=== PATIENT | female | born 1975 | race Caucasian/White ===

== ENCOUNTER → 2016-12-08 | Outpatient (CLI) | payer MEDICAID ==
[2016-12-08 11:34] LABS: LIPASE 74.7 U/L (23-300)
[2016-12-08 11:40] LABS: AMYLASE < 30 U/L (30-110)
== END ==
LOC: OD 09:24
PROVIDERS: ATTEND Specialist
DX: R10.9 Unspecified abdominal pain (principal); C25.0 Malignant neoplasm of head of pancreas; D50.9 Iron deficiency anemia, unspecified
CPT/HCPCS: 36415; 82150; 83690; 86301; 86304

== ENCOUNTER 2016-12-10 08:03 | Day surgery (SDC) | payer MEDICAID ==
[2016-12-08 11:07] LABS: ABSOLUTE EOSINOPHILS # (AUTO) 0.5 10^3/uL (0.0-0.6); ABSOLUTE LYMPHOCYTES (AUTO) 2.9 10^3/uL (0.5-4.7); ABSOLUTE MONOCYTES (AUTO) 0.6 10^3/uL (0.1-1.4); ABSOLUTE NEUT (AUTO) 7.2 10^3/uL (1.7-8.2); BASOPHILS % (AUTO) 0.2 % (0-2); EOSINOPHILS % (AUTO) 4.5 % (0-6); HEMATOCRIT 36.4 % (36.0-47.0); HEMOGLOBIN 11.7 g/dL (12.0-15.5); HGB HCT DIFFERENCE -1.3; LYMPHOCYTES % (AUTO) 25.8 % (13-45); MEAN CORPUSCULAR HEMOGLOBIN 26.6 pg (27.0-33.4); MEAN CORPUSCULAR HGB CONC 32.2 g/dL (32.0-36.0); MEAN CORPUSCULAR VOLUME 83 fl (80-97); MONOCYTES % (AUTO) 5.4 % (3-13); RED CELL DISTRIBUTION WIDTH 15.1 % (11.5-14.0); SEGMENTED NEUTROPHILS % (AUTO) 64.1 % (42-78); WHITE BLOOD COUNT 11.2 10^3/uL (4.0-10.5)
--- NOTE | 2016-12-09 15:28 | HISTORY AND PHYSICAL E ---
History and Physical NAME: BERTA MARIE : 1975 AGE: 41Y ADMITTED: 12/10/2016 ROOM: CHIEF COMPLAINT: Patient presented at this time regarding colonoscopy. HISTORY OF PRESENT ILLNESS: Patient did have history of hemorrhoids, cholecystectomy, partial hysterectomy. Her primary is Ogilvie Xoinka. The patient does have history of H pylori, abdominal pain, diarrhea, reflux, nausea. PAST SURGICAL HISTORY: 1. Colonoscopy 10 years ago. 2. Cholecystectomy. SOCIAL HISTORY: , does not smoke, does not drink. FAMILY HISTORY: Father is alive, heart disease. Mom is alive, heart disease. REVIEWING OF SYSTEMS: ENDOCRINE: Diabetes. CARDIAC: Hypertension. RESPIRATORY: Asthma, she takes inhaler. NEUROPSYCHIATRIC: Bipolar. PHYSICAL EXAMINATION: GENERAL: She is 41. VITAL SIGNS: Blood pressure 110/70. Pulse 80. Respirations 18. Temperature is 98. HEAD, EYES, EARS, NOSE, THROAT: Normal. NECK: Supple. LUNGS: Clear. ABDOMEN: Soft. NEUROLOGIC: Negative. CONCLUSION: 1. Abdominal pain. 2. Hemorrhoids. 3. History of H pylori. 4. Gastritis. PLAN: Colonoscopy, colon exam. DICTATING PHYSICIAN: TAMARA CARCAMO M.D. [id number] PHY#: [id number] ID: [id number] JOB#: [id number] ACCT: [id number] cc:TAMARA CARCAMO M.D. >
--- NOTE | 2016-12-09 15:36 | HISTORY AND PHYSICAL E ---
History and Physical NAME: BERTA MARIE : 1975 AGE: 41Y ADMITTED: 12/10/2016 ROOM: HISTORY: The patient presented at this time regarding colon exam. 2015 abdominal pain, bloating. She cannot tolerate procedure. She needs to be done with propofol in the OR. She is allergic to SULFA, ABILIFY, DEPAKOTE and LITHIUM. The patient had underwent recent endoscopy. Her upper scope done in the OR on ____ 2015 where she did have history of H. pylori gastritis, benign gastritis. The biopsy came back no bacteria. No cancer. White count 9 and hemoglobin 12. Amylase and lipase normal. Potassium is 4.2. Urine is clear. The patient's serology for IBD is negative. She does have group B beta strep. The patient referred to us by [facility]. She does have abdominal pain, diarrhea, bloating, reflux, nausea. She is . She did have colonoscopy Dr. Long 10 years ago showing hemorrhoids. Upper scope 2005. She did have cholecystectomy. She had hysterectomy. REVIEW OF SYSTEMS: CARDIAC: Hypertension. ENDOCRINE: Diabetes. History of kidney stones. GASTROINTESTINAL: Diarrhea, abdominal pain, bloating. ONCOLOGY/HEMATOLOGY: Negative. NEUROPSYCH: Bipolar, depression, vertigo. MUSCULOSKELETAL: Arthritis. FAMILY HISTORY: Father is alive, heart disease. Mom is alive, heart disease. EXAM: GENERAL: Pleasant. VITAL SIGNS: Blood pressure is 110/70, pulse 80, respirations 18, temperature 98. Weight is 300. HEAD, EYES, EARS, NOSE AND THROAT: Normal. ABDOMEN: Soft. NEUROLOGIC: Exam. MEDICATIONS: 1. Gabapentin. 2. Zofran. 3. Lisinopril. 4. Metformin. 5. Adderall. 6. Omeprazole. 7. Sucralfate. 8. Promethazine. 9. Trazodone. 10. Meclizine. 11. Meloxicam. 12. ProAir. IMAGING: The patient did have abdominal CT shows incomplete image. No significant abnormalities. CT scan small bowel series negative. The patient did have an upper scope in the OR. REFERRING PHYSICIAN: She is referred to us by [place]. At this time the patient presented regarding colonoscopy to be done in the OR. She does have asthma, reflux and kidney stones. She has abdominal pain left upper quadrant, left lower quadrant, right upper and right lower. She does have diarrhea, abdominal pain and arthralgia. CONCLUSION: Abdominal pain. PLAN: Colonoscopy scheduled in the OR to be done tomorrow on 12/10/2016. DICTATING PHYSICIAN: TAMARA CARCAMO M.D. [id number] PHY#: [id number] ID: [id number] JOB#: [id number] ACCT: [id number] cc:TAMARA CARCAMO M.D. >
[~2016-12-10 08:03] MED LIST: GLUCAGON,HUMAN RECOMB 1 MG INJ ONE; LACTATED RINGERS 1000 ML IV PRN; LIDOCAINE 0.5% INJ-PF (5 MG/ML) 50 ML SDV SUBCUT PRN; LIDOCAINE 2% JELLY 30 ML TUBE ONE
[2016-12-10] MEDS ORDERED: ALBUTEROL SULFATE 0.083% NEB 2.5 MG/3 ML AMPUL NEB PRN (08:42)
[2016-12-10] MEDS ORDERED: FAMOTIDINE INJ/PF 20 MG/2 ML SDV IV PRN (08:42)
[2016-12-10] MEDS ORDERED: PROPOFOL INJ 200 MG/20 ML VIAL IV ONE (09:09)
[2016-12-10] MEDS ORDERED: METOCLOPRAMIDE HCL INJ/PF 10 MG/2 ML SDV ONE (09:44)
[2016-12-10] MEDS ORDERED: ONDANSETRON HCL INJ/PF 4 MG/2 ML SDV ONE (09:44)
[2016-12-10] MEDS ORDERED: FAMOTIDINE INJ/PF 20 MG/2 ML SDV IV ONE (09:45)
[2016-12-10] MEDS ORDERED: ONDANSETRON HCL INJ/PF 4 MG/2 ML SDV IV PRN (10:47)
[2016-12-10] MEDS ORDERED: FENTANYL CITRATE INJ/PF 100 MCG/2 ML AMPUL IV PRN ×3 (10:47)
[2016-12-10 12:24] LABS: ABSOLUTE EOSINOPHILS # (AUTO) 0.3 10^3/uL (0.0-0.6); ABSOLUTE LYMPHOCYTES (AUTO) 2.4 10^3/uL (0.5-4.7); ABSOLUTE MONOCYTES (AUTO) 0.7 10^3/uL (0.1-1.4); ABSOLUTE NEUT (AUTO) 13.7 10^3/uL (1.7-8.2); BASOPHILS % (AUTO) 0.2 % (0-2); EOSINOPHILS % (AUTO) 1.5 % (0-6); HEMATOCRIT 34.9 % (36.0-47.0); HEMOGLOBIN 11.6 g/dL (12.0-15.5); HGB HCT DIFFERENCE -0.1; LYMPHOCYTES % (AUTO) 13.9 % (13-45); MEAN CORPUSCULAR HEMOGLOBIN 27.1 pg (27.0-33.4); MEAN CORPUSCULAR HGB CONC 33.1 g/dL (32.0-36.0); MEAN CORPUSCULAR VOLUME 82 fl (80-97); RED BLOOD COUNT 4.26 10^6/uL (3.72-5.28); SEGMENTED NEUTROPHILS % (AUTO) 80.4 % (42-78); WHITE BLOOD COUNT 17.1 10^3/uL (4.0-10.5)
--- NOTE | 2016-12-10 12:52 | DISCHARGE SUMMARY E ---
Discharge Summary NAME: BERTA MARIE : 1975 AGE: 41Y ADMITTED: 12/10/2016 DISCHARGED: 12/10/2016 PROCEDURE: Colonoscopy. HISTORY: A 41-year-old female with rectal bleeding and abdominal pain and remote history of lipoma underwent colonoscopy today. There was no lipoma, no polyps, external hemorrhoids. The patient does have diabetes, hypertension, depression and arthritis. ALLERGIES: SULFA. DISCHARGE PLAN: 1. Assurance. 2. Baseline lab studies. 3. We will recheck the H. pylori serology and serology for inflammatory bowel disease and CRP to rule out Crohn disease. 4. Consideration of follow-up colonoscopy after 10 years. FINAL DIAGNOSES: 1. External hemorrhoids. 2. Diarrhea, etiology undetermined. 3. History of partial hysterectomy and cholecystectomy. DICTATING PHYSICIAN: TAMARA CARCAMO M.D. [id number] [id number] PHY#: [id number] ID: [id number] JOB#: [id number] ACCT: [id number] cc:TAMARA CARCAMO M.D. >
--- NOTE | 2016-12-10 12:52 | OPERATIVE REPORT E ---
Operative Report NAME: BERTA MARIE : 1975 AGE: 41Y DATE OF SURGERY: 12/10/2016 ROOM: PREOPERATIVE DIAGNOSES: 1. Rectal bleeding. 2. Abdominal pain. 3. Remote history of lipoma. 4. Hemorrhoids. POSTOPERATIVE DIAGNOSIS: External hemorrhoids. PROCEDURE: Colonoscopy. SURGEON: TAMARA CARCAMO M.D. TISSUE REMOVED OR ALTERED: None. ANESTHESIA: Done in the OR with Anesthesia standby. DESCRIPTION OF PROCEDURE: Rectal exam shows external hemorrhoids. Sigmoid, descending colon normal. Transverse colon normal. Ascending colon normal. Cecum. The was a moderate amount of stool in the ascending colon. Cecum and ascending colon normal. Sigmoid and descending normal all the way to the rectum. CONCLUSION: 1. Diarrhea, etiology undetermined. Most likely secondary to metformin. 2. No evidence of polyps. 3. No evidence of malignancy. 4. External hemorrhoids. 5. Rectal bleeding secondary to external hemorrhoids. DISPOSITION: The patient tolerated the procedure well, discharged to recovery room in stable condition. PLAN: 1. Will obtain baseline lab studies. 2. We will see the patient in the office in the next few days. DICTATING PHYSICIAN: TAMARA CARCAMO M.D. [id number] PHY#: [id number] ID: [id number] JOB#: [id number] ACCT: [id number] cc:TAMARA CARCAMO M.D. >
[2016-12-10 12:58] VITALS: BP 116/75
[2016-12-10 13:06] LABS: ERYTHROCYTE SEDIMENTATION RATE 53 mm/hr (0-20)
[2016-12-15 07:13] LABS: DEAMIDATED GLIADIN IGA AB 13 units (0-19); DEAMIDATED GLIADIN IGG AB 3 units (0-19); IMMUNOGLOBULIN A 2 360 mg/dL (87-352); T-TRANSGLUTAMINASE (TTG) IGG <2 U/mL (0-5)
== END 2016-12-10 12:35 | disposition home or self-care (01) ==
LOC: OROUT 08:03
PROVIDERS: ATTEND Specialist
PROC: 0DJD8ZZ Inspection of Lower Intestinal Tract, Via Natural or Artificial Opening Endoscopic (ICD-10-PCS; principal; 2016-12-10 10:00)
DX: K64.4 Residual hemorrhoidal skin tags (principal); R10.9 Unspecified abdominal pain; K62.5 Hemorrhage of anus and rectum; R19.7 Diarrhea, unspecified; E11.9 Type 2 diabetes mellitus without complications; I10 Essential (primary) hypertension; M19.90 Unspecified osteoarthritis, unspecified site; F31.9 Bipolar disorder, unspecified; J45.909 Unspecified asthma, uncomplicated; Z79.899 Other long term (current) drug therapy; Z79.84 Long term (current) use of oral hypoglycemic drugs; Z88.2 Allergy status to sulfonamides; Z79.51 Long term (current) use of inhaled steroids
CPT/HCPCS: 45378; 86256; 36415 ×2; 82962; 85025 ×2; 85652; 81025; 86140; 83520 ×5; 94640; J1610; J3490; J2765; J2405; J2704; S0028; 810

== ENCOUNTER → 2017-01-08 | Day surgery (SDC) | payer MEDICAID | LOC: RAD 13:03 | PROVIDERS: ATTEND Specialist | PROC: BP09ZZZ Plain Radiography of Left Shoulder (ICD-10-PCS; principal; 2017-01-08) | DX: M75.42 Impingement syndrome of left shoulder (principal); M25.512 Pain in left shoulder; M12.812 Other specific arthropathies, not elsewhere classified, left shoulder | CPT/HCPCS: 73222; 73040; 77002; A9576 ==

== ENCOUNTER 2017-02-10 12:19 | Emergency (ER) | payer MEDICAID ==
[2017-02-10] MEDS ORDERED: OXYCODONE-ACETAMINOPHEN 5-325 MG TABLET PO ONE (12:28)
--- NOTE | 2017-02-10 12:29 | ER Document Report ---
ED Medical Screen (RME) - General Stated Complaint: FALL/ KNEE PAIN Notes: Patient states she fell down one step today, injuring both legs below the knee. Right leg hurts more than the left. Patient states she is unable to bear weight on that leg. I have greeted and performed a rapid initial assessment of this patient. A comprehensive ED assessment and evaluation of the patient, analysis of test results and completion of the medical decision making process will be conducted by additional ED providers. TRAVEL OUTSIDE OF THE [place] IN LAST 30 DAYS: No - Related Data Allergies/Adverse Reactions: aripiprazole [From Abilify] Allergy (Severe, Verified 02/10/17 12:28) suicidal thoughts divalproex sodium [From Depakote] Allergy (Severe, Verified 02/10/17 12:28) n and v lithium [[place]] Allergy (Severe, Verified 02/10/17 12:28) n and v Sulfa (Sulfonamide Antibiotics) Allergy (Severe, Verified 02/10/17 12:28) itching hives antidepressants Allergy (Severe, Uncoded 02/10/17 12:28) manic tape Allergy (Severe, Uncoded 02/10/17 12:28) rash Past Medical History - Past Medical History Cardiac Medical History: Reports: Hx Hypertension Denies: Hx Coronary Artery Disease, Hx Heart Attack Pulmonary Medical History: Reports: Hx Asthma, Hx Bronchitis, Hx Pneumonia Denies: Hx COPD, Hx Tuberculosis Neurological Medical History: Reports: Hx Migraine. Denies: Hx Cerebrovascular Accident, Hx Seizures Endocrine Medical History: Reports: Hx Diabetes Mellitus Type 2 Renal/ Medical History: Reports: Hx Kidney Stones GI Medical History: Reports: Hx Gastroesophageal Reflux Disease Musculoskeltal Medical History: Reports Hx Arthritis Psychiatric Medical History: Reports: Hx Bipolar Disorder, Hx Depression Traumatic Medical History: Reports: Hx Fractures - arm years ago Past Surgical History: Reports: Hx Cholecystectomy, Hx Hysterectomy - partial 1998, Hx Orthopedic Surgery - right foot, Hx Tubal Ligation. Denies: Hx Pacemaker - Immunizations Hx Diphtheria, Pertussis, Tetanus Vaccination: Yes Physical Exam - Vital signs Vitals: Temp Pulse Resp BP Pulse Ox 98.4 F 94 18 115/73 96 02/10/17 12:23 02/10/17 12:23 02/10/17 12:23 02/10/17 12:23 02/10/17 12:23 - Skin Notes: Abrasions noted to both anterior lower legs. Right leg is swollen. Course - Vital Signs Vital signs: Temp Pulse Resp BP Pulse Ox 98.4 F 94 18 115/73 96 02/10/17 12:23 02/10/17 12:23 02/10/17 12:23 02/10/17 12:23 02/10/17 12:23
--- NOTE | 2017-02-10 13:27 | ER Document Report ---
HPI - HPI Patient complains to provider of: fell on stairs, hitting mid tibia bilaterall Onset: Just prior to arrival Onset/Duration: Sudden Pain Level: 3 Context: 41-year-old female tripped on the steps hitting her mid tibia on bot legs causing abrasions and swelling to especially the right leg. Associated Symptoms: None Exacerbated by: Movement, Walking Relieved by: Denies Similar symptoms previously: No Recently seen / treated by doctor: No - ROS ROS below otherwise negative: Yes Systems Reviewed and Negative: Yes All other systems reviewed and negative - REPRODUCTIVE Reproductive: DENIES: : - DERM Skin Color: Normal Past Medical History - General Information source: Patient - Social History Smoking Status: Never Smoker Chew tobacco use (# tins/day): No Frequency of alcohol use: None Drug Abuse: None Lives with: Family Family History: Reviewed & Not Pertinent Patient has suicidal ideation: No Patient has homicidal ideation: No - Past Medical History Cardiac Medical History: Reports: Hx Hypertension Pulmonary Medical History: Reports: Hx Asthma, Hx Bronchitis, Hx Pneumonia Neurological Medical History: Reports: Hx Migraine Endocrine Medical History: Reports: Hx Diabetes Mellitus Type 2 Renal/ Medical History: Reports: Hx Kidney Stones. Denies: Hx Peritoneal Dialysis GI Medical History: Reports: Hx Gastroesophageal Reflux Disease Musculoskeltal Medical History: Reports Hx Arthritis Psychiatric Medical History: Reports: Hx Bipolar Disorder, Hx Depression Traumatic Medical History: Reports: Hx Fractures - arm years ago Past Surgical History: Reports: Hx Cholecystectomy, Hx Hysterectomy - partial 1998, Hx Orthopedic Surgery - right foot, Hx Tubal Ligation - Immunizations Hx Diphtheria, Pertussis, Tetanus Vaccination: Yes Hx Pneumococcal Vaccination: 12/24/10 Vertical Provider Document - CONSTITUTIONAL Agree With Documented VS: Yes Exam Limitations: No Limitations - INFECTION CONTROL TRAVEL OUTSIDE OF THE [place] IN LAST 30 DAYS: No - HEENT HEENT: Atraumatic, Normocephalic - NECK Neck: Supple - RESPIRATORY Respiratory: Breath Sounds Normal, No Respiratory Distress O2 Sat by Pulse Oximetry: 96 - CARDIOVASCULAR Cardiovascular: Regular Rate, Regular Rhythm - GI/ABDOMEN Gastrointestinal: Abdomen Soft - BACK Back: Normal Inspection - MUSCULOSKELETAL/EXTREMETIES Musculoskeletal/Extremeties: MAEW, FROM, Tender, Edema, Eccymosis Notes: superficial abrasions anterior mid right and left tibia, mostly the irght. N/V intact distally. No signs of compartment syndrome - NEURO Level of Consciousness: Awake, Alert Motor/Sensory: No Motor Deficit, No Sensory Deficit - DERM Integumentary: Warm, Dry Notes: see above, pt states tetanus is current Course - Re-evaluation Re-evalutation: 02/10/17 13:33 X-ray is negative - Vital Signs Vital signs: Temp Pulse Resp BP Pulse Ox 98.4 F 94 18 115/73 96 02/10/17 12:23 02/10/17 12:23 02/10/17 12:23 02/10/17 12:23 02/10/17 12:23 Discharge - Discharge Clinical Impression: Abrasion, contusion Condition: Good Disposition: HOME, SELF-CARE Instructions: Abrasions ([facility]), Contusion ([facility]), Acetaminophen, Anti- Inflammatory Medication ([facility]) Additional Instructions: elevate Keep clean, bacitracin, Telfa which is a nonstick dressing use crutches few days that you have at home. Please complete the patient satisfaction survey if you get one, and return it.. If you do not receive a survey, then you can go to the [facility] website, [email or web address] and place your comments about your very good care. Thank you very much. It was a pleasure being your medical provider today. Prescriptions: Ibuprofen [Motrin 800 mg Tablet] 800 mg PO Q8HP PRN #30 tablet PRN Reason: Referrals: NICHELLE CASEY MD [Primary Care Provider] - Follow up as needed
[2017-02-10 14:33] VITALS: BP 119/74
== END 2017-02-10 14:43 | disposition home or self-care (01) ==
LOC: ER 12:19
DX: S80.812A Abrasion, left lower leg, initial encounter (principal); S80.811A Abrasion, right lower leg, initial encounter; W10.9XXA Fall (on) (from) unspecified stairs and steps, initial encounter; S80.12XA Contusion of left lower leg, initial encounter; S80.11XA Contusion of right lower leg, initial encounter
CPT/HCPCS: 99283

== ENCOUNTER 2017-03-09 20:49 | Emergency (ER) | payer MEDICAID ==
[2017-03-09 21:07] VITALS: BP 128/73
[2017-03-09] MEDS ORDERED: ASPIRIN 81 MG TABLET, CHEWABLE PO ONE (21:32)
[2017-03-09 22:03] LABS: ABSOLUTE BASOPHILS # (AUTO) 0.1 10^3/uL (0.0-0.2); ABSOLUTE EOSINOPHILS # (AUTO) 0.2 10^3/uL (0.0-0.6); ABSOLUTE LYMPHOCYTES (AUTO) 3.3 10^3/uL (0.5-4.7); ABSOLUTE MONOCYTES (AUTO) 0.7 10^3/uL (0.1-1.4); ABSOLUTE NEUT (AUTO) 7.1 10^3/uL (1.7-8.2); BASOPHILS % (AUTO) 0.6 % (0-2); EOSINOPHILS % (AUTO) 1.9 % (0-6); HEMATOCRIT 34.7 % (36.0-47.0); HEMOGLOBIN 11.5 g/dL (12.0-15.5); HGB HCT DIFFERENCE -0.2; LYMPHOCYTES % (AUTO) 29.1 % (13-45); MEAN CORPUSCULAR HEMOGLOBIN 26.6 pg (27.0-33.4); MEAN CORPUSCULAR HGB CONC 33.2 g/dL (32.0-36.0); MEAN CORPUSCULAR VOLUME 80 fl (80-97); MONOCYTES % (AUTO) 5.9 % (3-13); RED BLOOD COUNT 4.32 10^6/uL (3.72-5.28); SEGMENTED NEUTROPHILS % (AUTO) 62.5 % (42-78); WHITE BLOOD COUNT 11.4 10^3/uL (4.0-10.5)
[2017-03-09 22:21] LABS: ALANINE AMINOTRANSFERASE 32 U/L (9-52); ALBUMIN 3.8 g/dL (3.5-5.0); ALKALINE PHOSPHATASE 106 U/L (38-126); ANION GAP 12 (5-19); ASPARTATE AMINO TRANSFERASE 22 U/L (14-36); BILIRUBIN,DIRECT 0.1 mg/dL (0.0-0.4); BILIRUBIN,TOTAL 0.4 mg/dL (0.2-1.3); BLOOD UREA NITROGEN 8 mg/dL (7-20); CALCIUM 9.4 mg/dL (8.4-10.2); CARBON DIOXIDE 27 mmol/L (22-30); CHLORIDE 101 mmol/L (98-107); CREATINE KINASE 60 U/L (30-135); CREATININE RESULT 0.71 mg/dL (0.52-1.25); GLUCOSE 109 mg/dL (75-110); POTASSIUM 4.2 mmol/L (3.6-5.0); SODIUM 140.2 mmol/L (137-145); TOTAL PROTEIN 6.6 g/dL (6.3-8.2)
[2017-03-09 22:32] LABS: CREATINE KINASE MB 0.42 ng/mL (<4.55)
[2017-03-09 22:36] LABS: TROPONIN I < 0.012 ng/mL
--- NOTE | 2017-03-09 23:37 | EKG REPORT ---
SEVERITY:- NORMAL ECG - SINUS RHYTHM : Confirmed by: Chris Tena 09-Mar-2017 23:36:29
== END 2017-03-10 00:30 | disposition left against medical advice (07) ==
LOC: ER 20:49
DX: Z53.21 Procedure and treatment not carried out due to patient leaving prior to being seen by health care provider (principal)
CPT/HCPCS: 36415; 71010; 80053; 82550; 82553; 84484; 85025; 93005; 93010

== ENCOUNTER → 2017-04-10 | Outpatient (CLI) | payer MEDICAID | LOC: RAD 10:52 | PROVIDERS: ATTEND Specialist | DX: M25.511 Pain in right shoulder (principal) ==

== ENCOUNTER 2017-05-04 00:02 | Emergency (ER) | payer MEDICAID ==
[2017-05-04 00:12] VITALS: BP 136/85
== END 2017-05-04 00:21 | disposition left against medical advice (07) ==
LOC: ER 00:02
DX: Z53.21 Procedure and treatment not carried out due to patient leaving prior to being seen by health care provider (principal)

== ENCOUNTER 2017-07-30 07:37 | Day surgery (SDC) | payer MEDICAID ==
--- NOTE | 2017-07-23 12:31 | HISTORY AND PHYSICAL E ---
History and Physical NAME: BERTA MARIE : 1975 AGE: 41Y ADMITTED: 07/30/2017 ROOM: CHIEF COMPLAINT: Rectal bleeding. HISTORY: Patient presented with rectal bleeding. Admitted for colonoscopy. Patient is allergic to SULFA AND LITHIUM. The patient did have abdominal hernia repair. Referring physician Dr. Bailey, [facility]. She did have upper endoscopy. Patient was treated for H. pylori. She did have gastritis, esophagitis, duodenitis, H. pylori. Biopsy negative. Because of rectal bleeding, patient is being admitted regarding colonoscopy. Patient's cerevisia IgA is positive, abnormal 137. Patient did have x-ray regarding abdominal pain. Small bowel series was done. It shows as follow: Incomplete imaging of the proximal colon. Normal mucosa without , stones, or stricture. The patient had abdominal pain, gastritis. Colonoscopy in the past. Cholecystectomy. PHYSICAL EXAMINATION: VITAL SIGNS: Blood pressure 110/70, pulse 80, respirations 18, temp is 98. HEAD, EYES, EARS, NOSE, THROAT: Normal. ABDOMEN: Soft. NEUROLOGIC: Negative. CONCLUSION: Rectal bleeding. PLAN: Colonoscopy. DICTATING PHYSICIAN: TAMARA CARCAMO M.D. [id number] PHY#: [id number] ID: [id number] JOB#: [id number] ACCT: [id number] cc:[facility], INTERNAL MEDICINE TAMARA CARCAMO M.D. >
--- NOTE | 2017-07-24 10:44 | HISTORY AND PHYSICAL E ---
History and Physical NAME: BERTA MARIE : 1975 AGE: 41Y ADMITTED: 07/30/2017 ROOM: CHIEF COMPLAINT: The patient admitted regarding colonoscopy. The patient to be done in the OR. HISTORY OF PRESENT ILLNESS: I saw the patient on . ALLERGIES: She is allergic to SULFA. REFERRING PHYSICIAN: She is referred to us by [facility]. PAST SURGICAL HISTORY: She did have hysterectomy. REVIEW OF SYSTEMS: CARDIAC: Hypertension. ENDOCRINE: Diabetes. GASTROINTESTINAL: Diarrhea, abdominal pain, bloating. NEURO-PSYCH: Bipolar; depression. MUSCULOSKELETAL: Arthritis. FAMILY HISTORY: Father is alive, heart disease. Mom is alive, heart disease. PHYSICAL EXAMINATION: VITAL SIGNS: Blood pressure 110/70, pulse 80, respirations 18, temperature is 98. HEAD, EYES, EARS, NOSE AND THROAT: Normal. ABDOMEN: Soft. NEUROLOGIC EXAM: Negative. MEDICATIONS: 1. Zofran. 2. Lisinopril. 3. Meclizine. 4. Meloxicam. She was evaluated in the past by Dr. Long for hemorrhoids. PAST SURGICAL HISTORY: 1. Cholecystectomy. 2. Partial hysterectomy. CONCLUSION: Colon exam regarding rectal bleeding. PLAN: Colonoscopy to be done in the OR with anesthesia standby. DICTATING PHYSICIAN: TAMARA CARCAMO M.D. [id number] [id number] Y#: [id number] ID: [id number] JOB#: [id number] ACCT: [id number] cc:[facility] INTERNAL MEDICINE TAMARA CARCAMO M.D. >
[~2017-07-30 07:37] MED LIST changes: -GLUCAGON,HUMAN RECOMB 1 MG INJ ONE; -LIDOCAINE 2% JELLY 30 ML TUBE ONE
[2017-07-30 08:11] LABS: ABSOLUTE BASOPHILS # (AUTO) 0.1 10^3/uL (0.0-0.2); ABSOLUTE EOSINOPHILS # (AUTO) 0.3 10^3/uL (0.0-0.6); ABSOLUTE LYMPHOCYTES (AUTO) 3.2 10^3/uL (0.5-4.7); ABSOLUTE MONOCYTES (AUTO) 0.7 10^3/uL (0.1-1.4); BASOPHILS % (AUTO) 0.6 % (0-2); EOSINOPHILS % (AUTO) 2.3 % (0-6); HEMATOCRIT 40.1 % (36.0-47.0); HEMOGLOBIN 13.3 g/dL (12.0-15.5); HGB HCT DIFFERENCE -0.2; LYMPHOCYTES % (AUTO) 25.9 % (13-45); MEAN CORPUSCULAR HEMOGLOBIN 27.2 pg (27.0-33.4); MEAN CORPUSCULAR HGB CONC 33.1 g/dL (32.0-36.0); MEAN CORPUSCULAR VOLUME 82 fl (80-97); RED BLOOD COUNT 4.89 10^6/uL (3.72-5.28); RED CELL DISTRIBUTION WIDTH 16.8 % (11.5-14.0); SEGMENTED NEUTROPHILS % (AUTO) 65.2 % (42-78); WHITE BLOOD COUNT 12.2 10^3/uL (4.0-10.5)
[2017-07-30] MEDS ORDERED: ONDANSETRON HCL INJ/PF 4 MG/2 ML SDV ONE (08:58)
[2017-07-30] MEDS ORDERED: MIDAZOLAM 2 MG/2 ML INJ ONE (09:05)
[2017-07-30] MEDS ORDERED: PROPOFOL INJ 200 MG/20 ML VIAL IV ONE (09:05)
[2017-07-30] MEDS ORDERED: ALBUTEROL SULFATE 0.083% NEB 2.5 MG/3 ML AMPUL NEB ONE (09:35)
[2017-07-30] MEDS ORDERED: GLUCAGON,HUMAN RECOMB 1 MG INJ ONE (09:41)
[2017-07-30] MEDS ORDERED: LIDOCAINE 2% JELLY 30 ML TUBE ONE (09:52)
[2017-07-30] MEDS ORDERED: KETOROLAC TROMETHAMINE INJ/PF 30 MG/1 ML SDV ONE (10:57)
[2017-07-30] MEDS ORDERED: SIMETHICONE 80 MG TAB.CHEW PO PRN (11:07)
[2017-07-30] MEDS ORDERED: ACETAMINOPHEN 325 MG TABLET PO PRN (11:09)
[2017-07-30] MEDS ORDERED: LIDOCAINE 2% VISCOUS SOLN 20 ML UDCUP PO PRN (11:09)
[2017-07-30] MEDS ORDERED: PROMETHAZINE HCL INJ 25 MG/1 ML VIAL IV PRN ×2 (11:10→11:26)
[2017-07-30] MEDS ORDERED: FENTANYL CITRATE INJ/PF 100 MCG/2 ML AMPUL IV PRN ×2 (11:26)
[2017-07-30] MEDS ORDERED: DIPHENHYDRAMINE HCL 50 MG/ML VIAL IV PRN (11:26)
[2017-07-30 12:17] VITALS: BP 153/86
--- NOTE | 2017-07-30 12:44 | DISCHARGE SUMMARY E ---
Discharge Summary NAME: BERTA MARIE : 1975 AGE: 41Y ADMITTED: 07/30/2017 DISCHARGED: 07/30/2017 FINAL DIAGNOSIS: Patient is a 41-year-old female who presented with rectal bleeding. Today's colonoscopy was successful done in the OR with anesthesia standby. Patient did have history of hysterectomy and cholecystectomy. Today's colonoscopy was successful. No polyps. No bleeding. Mild external hemorrhoids and skin tags. Inadequate prep, redundant colon. DISCHARGE PLAN: 1. Assurance. 2. Continue present management. 3. Followup office visit in the next few days. ADDENDUM: Patient is known to have diabetes, hypertension, depression, and arthritis. DICTATING PHYSICIAN: TAMARA CARCAMO M.D. [id number] PHY#: [id number] ID: [id number] JOB#: [id number] ACCT: [id number] cc:[facility], INTERNAL MEDICINE TAMARA CARCAMO M.D. >
--- NOTE | 2017-07-30 12:46 | OPERATIVE REPORT E ---
Operative Report NAME: BERTA MARIE : 1975 AGE: 41Y DATE OF SURGERY: 07/30/2017 ROOM: ADDENDUM PREOPERATIVE DIAGNOSIS: Rectal bleeding. POSTOPERATIVE DIAGNOSIS: No polyps. External hemorrhoids. PROCEDURE: Colonoscopy. RECOMMENDATION: Followup colonoscopy 10 years. TAMARA CARCAMO M.D. DICTATING PHYSICIAN: TAMARA CARCAMO M.D. [id number] [id number] PHY#: [id number] ID: [id number] JOB#: [id number] ACCT: [id number] cc:[facility] INTERNAL MED[facility] TAMARA CARCAMO M.D. >
--- NOTE | 2017-07-30 12:48 | OPERATIVE REPORT E ---
Operative Report NAME: BERTA MARIE : 1975 AGE: 41Y DATE OF SURGERY: 07/30/2017 ROOM: PREOPERATIVE DIAGNOSIS: Rectal bleeding. POSTOPERATIVE DIAGNOSES: 1. External hemorrhoids. 2. Skin tags. PROCEDURE: Colonoscopy. SURGEON: TAMARA CARCAMO M.D. ANESTHESIA: Done in the OR with anesthesia standby. TISSUE REMOVED OR ALTERED: None. DESCRIPTION OF PROCEDURE: Rectal exam shows skin tags and external hemorrhoids. No active bleeding. Rectosigmoid: Some liquidity green stool, otherwise, negative. Descending colon: Brown stool. No polyps. Transverse colon normal. Ascending colon shows liquidity brown stool. Cecum was coated with liquidity brown stool. No evidence of blood. No polyps. Scope withdrawn from cecum, ascending, transverse, descending, sigmoid all the way to the rectum. CONCLUSION: Rectal bleeding most likely secondary to hemorrhoids. External skin tags. No polyps. No malignancy. FINAL DIAGNOSIS: Redundant colon. Inadequate prep. Colonoscopy to the cecum: External hemorrhoids. No polyps. No bleeding. Patient tolerated the procedure well. Discharged to her room in stable condition. DICTATING PHYSICIAN: TAMARA CARCAMO M.D. [id number] PHY#: [id number] ID: [id number] JOB#: [id number] ACCT: [id number] cc:[facility], INTERNAL MEDICINE TAMARA CARCAMO M.D. >
== END 2017-07-30 12:05 | disposition home or self-care (01) ==
LOC: OROUT 07:37
PROVIDERS: ATTEND Specialist
PROC: 0DJD8ZZ Inspection of Lower Intestinal Tract, Via Natural or Artificial Opening Endoscopic (ICD-10-PCS; principal; 2017-07-30 10:00)
DX: K62.5 Hemorrhage of anus and rectum (principal); K64.4 Residual hemorrhoidal skin tags; I10 Essential (primary) hypertension; E11.9 Type 2 diabetes mellitus without complications; M19.90 Unspecified osteoarthritis, unspecified site; Z88.2 Allergy status to sulfonamides
CPT/HCPCS: 45378; 36415; 82947; 85025; 94640; J2250; J3490; J1885; J2405; J2704; 810; J1610

== ENCOUNTER → 2017-08-05 | Outpatient (CLI) | payer MEDICAID ==
[2017-08-05 18:21] LABS: ABSOLUTE BASOPHILS # (AUTO) 0.1 10^3/uL (0.0-0.2); ABSOLUTE EOSINOPHILS # (AUTO) 0.3 10^3/uL (0.0-0.6); ABSOLUTE LYMPHOCYTES (AUTO) 3.6 10^3/uL (0.5-4.7); ABSOLUTE MONOCYTES (AUTO) 0.8 10^3/uL (0.1-1.4); BASOPHILS % (AUTO) 0.4 % (0-2); LYMPHOCYTES % (AUTO) 28.3 % (13-45); MEAN CORPUSCULAR HEMOGLOBIN 27.6 pg (27.0-33.4); MEAN CORPUSCULAR HGB CONC 34.2 g/dL (32.0-36.0); MEAN CORPUSCULAR VOLUME 81 fl (80-97); RED BLOOD COUNT 4.72 10^6/uL (3.72-5.28); SEGMENTED NEUTROPHILS % (AUTO) 63.3 % (42-78); WHITE BLOOD COUNT 12.6 10^3/uL (4.0-10.5)
== END ==
LOC: OD 16:23
PROVIDERS: ATTEND Specialist
DX: K62.5 Hemorrhage of anus and rectum (principal)
CPT/HCPCS: 36415; 85025

== ENCOUNTER 2017-08-18 15:59 | Observation (INO) | payer MEDICAID ==
[2017-08-18] MEDS ORDERED: NORMAL SALINE 1000 ML 1,000 ML IV ONE (16:57)
--- NOTE | 2017-08-18 17:01 | ER Document Report ---
HPI - HPI Patient complains to provider of: painful hemorrhoids Onset: Other Onset/Duration: Worse Quality of pain: Stabbing, Throbbing Severity: Severe Pain Level: 5 Context: Patient states she has been having problems with hemorrhoids for the last 5 weeks. She is scheduled to have surgery on September 08 in [place]. Patient went to Dr. Hernandez's office today for evaluation of increased pain, and he sent the patient to the emergency room for surgical consultation. Associated Symptoms: None Exacerbated by: Sitting, Standing, Movement, Walking Relieved by: Denies Similar symptoms previously: Yes Recently seen / treated by doctor: Yes - ROS ROS below otherwise negative: Yes Systems Reviewed and Negative: Yes All other systems reviewed and negative - CONSTITUTIONAL Constitutional: DENIES: Fever - EENT EENT: DENIES: Congestion - NEURO Neurology: DENIES: Headache - CARDIOVASCULAR Cardiovascular: DENIES: Chest pain - RESPIRATORY Respiratory: DENIES: Trouble Breathing - GASTROINTESTINAL Gastrointestinal: DENIES: Abdominal Pain Notes: Rectal pain, hemorrhoids, and intermittent bleeding. - URINARY Urinary: DENIES: Dysuria - REPRODUCTIVE Reproductive: DENIES: : - MUSCULOSKELETAL Musculoskeletal: DENIES: Extremity pain - DERM Skin Color: Normal Past Medical History - General Information source: Patient - Social History Smoking Status: Never Smoker Frequency of alcohol use: None Drug Abuse: None Lives with: Family Family History: Reviewed & Not Pertinent Patient has suicidal ideation: No Patient has homicidal ideation: No - Past Medical History Cardiac Medical History: Reports: Hx Hypertension Pulmonary Medical History: Reports: Hx Asthma - MILD Neurological Medical History: Reports: Hx Migraine Endocrine Medical History: Reports: Hx Diabetes Mellitus Type 2 Renal/ Medical History: Reports: Hx Kidney Stones GI Medical History: Reports: Hx Gastroesophageal Reflux Disease Psychiatric Medical History: Reports: Hx Bipolar Disorder, Hx Depression Traumatic Medical History: Reports: Hx Fractures - arm years ago Past Surgical History: Reports: Hx Cholecystectomy, Hx Hysterectomy - partial 1998, Hx Orthopedic Surgery - right foot, Hx Tubal Ligation - Immunizations Hx Diphtheria, Pertussis, Tetanus Vaccination: Yes Hx Pneumococcal Vaccination: 12/24/10 Vertical Provider Document - CONSTITUTIONAL Agree With Documented VS: Yes Exam Limitations: No Limitations General Appearance: WD/WN, Moderate Distress - INFECTION CONTROL TRAVEL OUTSIDE OF THE [place] IN LAST 30 DAYS: No - HEENT HEENT: Atraumatic, Normocephalic - RESPIRATORY Respiratory: Breath Sounds Normal, No Respiratory Distress O2 Sat by Pulse Oximetry: 98 - CARDIOVASCULAR Cardiovascular: Regular Rhythm, Tachycardia - GI/ABDOMEN Gastrointestinal: Abdomen Soft, Abdomen Non-Tender Notes: Large hard erythematous area at rectal opening/right buttock. Very tender to palpation. Unable to do rectal exam due to pain. No thrombosed hemorrhoid noted, no bleeding noted. - MUSCULOSKELETAL/EXTREMETIES Musculoskeletal/Extremeties: MAEW - NEURO Level of Consciousness: Awake, Alert, Appropriate - DERM Integumentary: Warm, Dry, Abscess - Perirectal Course - Re-evaluation Re-evalutation: 08/18/17 17:04 Surgeon consulted and agrees to come and see patient in room 35. CBC, chemistry , lactic acid and fluid hydration ordered. 08/18/17 18:[address] Ford regarding patient's lactic acid at 3.3. order to give 2 more bags of fluid, Cipro 400 mg IV, and Flagyl 500 mg IV 08/18/17 18:28 On reassessment, breath sounds normal, regular respiratory rate. Skin warm and dry, cap refill less than 3 seconds. Heart rate remains tachycardic at 104. Patient has good peripheral pulses. Dr. Ford in room to evaluate patient and will be taking her to surgery tonight. 08/18/17 20:31 - Vital Signs Vital signs: Temp Pulse Resp BP Pulse Ox 98.6 F 112 H 16 145/87 H 98 08/18/17 16:23 08/18/17 16:23 08/18/17 16:23 08/18/17 16:23 08/18/17 16:23 - Laboratory Result Diagrams: 08/18/17 17:30 08/18/17 17:30 Discharge - Discharge Clinical Impression: Perirectal abscess Condition: Good Disposition: ADMITTED INPATIENT Admitting Provider: Surgicalist Maddison Ford
[2017-08-18 17:54] LABS: ABSOLUTE EOSINOPHILS # (AUTO) 0.2 10^3/uL (0.0-0.6); ABSOLUTE LYMPHOCYTES (AUTO) 2.7 10^3/uL (0.5-4.7); ABSOLUTE MONOCYTES (AUTO) 0.8 10^3/uL (0.1-1.4); ABSOLUTE NEUT (AUTO) 9.9 10^3/uL (1.7-8.2); BASOPHILS % (AUTO) 0.3 % (0-2); EOSINOPHILS % (AUTO) 1.5 % (0-6); HEMATOCRIT 36.6 % (36.0-47.0); HEMOGLOBIN 12.3 g/dL (12.0-15.5); HGB HCT DIFFERENCE 0.3; LYMPHOCYTES % (AUTO) 20.1 % (13-45); MEAN CORPUSCULAR HEMOGLOBIN 27.4 pg (27.0-33.4); MEAN CORPUSCULAR HGB CONC 33.5 g/dL (32.0-36.0); MEAN CORPUSCULAR VOLUME 82 fl (80-97); MONOCYTES % (AUTO) 5.8 % (3-13); RED BLOOD COUNT 4.47 10^6/uL (3.72-5.28); SEGMENTED NEUTROPHILS % (AUTO) 72.3 % (42-78); WHITE BLOOD COUNT 13.7 10^3/uL (4.0-10.5)
[2017-08-18 18:00] LABS: APPEARANCE,URINE CLEAR; BILIRUBIN,URINE NEGATIVE (NEGATIVE); GLUCOSE, URINE NEGATIVE (NEGATIVE); KETONES,URINE NEGATIVE (NEGATIVE); LEUKOCYTE ESTERASE,URINE NEGATIVE (NEGATIVE); NITRITE,URINE NEGATIVE (NEGATIVE); PROTEIN,URINE NEGATIVE (NEGATIVE); URINE SPECIFIC GRAVITY 1.017; UROBILINOGEN,URINE NEGATIVE mg/dL (<2.0)
[2017-08-18 18:14] LABS: ALANINE AMINOTRANSFERASE 23 U/L (9-52); ALBUMIN 3.7 g/dL (3.5-5.0); ALKALINE PHOSPHATASE 117 U/L (38-126); ANION GAP 11 (5-19); ASPARTATE AMINO TRANSFERASE 16 U/L (14-36); BILIRUBIN,DIRECT 0.3 mg/dL (0.0-0.4); BILIRUBIN,TOTAL 0.3 mg/dL (0.2-1.3); BLOOD UREA NITROGEN 10 mg/dL (7-20); CALCIUM 9.2 mg/dL (8.4-10.2); CARBON DIOXIDE 27 mmol/L (22-30); CHLORIDE 99 mmol/L (98-107); CREATININE RESULT 0.61 mg/dL (0.52-1.25); GLUCOSE 162 mg/dL (75-110); POTASSIUM 3.9 mmol/L (3.6-5.0); SODIUM 137.3 mmol/L (137-145); TOTAL PROTEIN 6.6 g/dL (6.3-8.2)
[2017-08-18] MEDS ORDERED: METRONIDAZOLE 500 MG/NS RTU 100 ML IV ONE (18:30)
[2017-08-18] MEDS ORDERED: CIPROFLOXACIN 400 MG/D5W RTU 400 MG/200 ML RTUPB IV ONE (18:30)
[2017-08-18 18:31] LABS: PROTHROMBIN TIME 13.4 SEC (11.4-15.4)
[2017-08-18] MEDS: NORMAL SALINE 1000 ML 1,000 ML IV PRN ×2 (18:31→18:38)
[2017-08-18 18:58] LABS: VENOUS BLOOD BASE EXCESS 3.2 mmol/L; VENOUS BLOOD HCO3 28.5 mmol/L (20-32); VENOUS BLOOD PCO2 46.3 mmHg (35-63); VENOUS BLOOD PH 7.41 (7.30-7.42)
[2017-08-18] MEDS ORDERED: ALBUTEROL SULFATE 0.083% NEB 2.5 MG/3 ML AMPUL NEB ONE ×2 (19:13→19:43)
[2017-08-18] MEDS ORDERED: METOCLOPRAMIDE HCL INJ/PF 10 MG/2 ML SDV IV ONE (19:18)
[2017-08-18] MEDS ORDERED: FAMOTIDINE INJ/PF 20 MG/2 ML SDV IV ONE ×2 (19:19→19:44)
[2017-08-18] MEDS ORDERED: LIDOCAINE 0.5% INJ-PF (5 MG/ML) 50 ML SDV ONE (19:25)
[2017-08-18] MEDS ORDERED: METOCLOPRAMIDE HCL INJ/PF 10 MG/2 ML SDV ONE (19:43)
[2017-08-18] MEDS ORDERED: FENTANYL CITRATE INJ/PF 100 MCG/2 ML AMPUL ONE ×2 (20:01→21:15)
[2017-08-18] MEDS ORDERED: PROPOFOL INJ 200 MG/20 ML VIAL IV ONE (20:02)
[2017-08-18] MEDS ORDERED: MIDAZOLAM 2 MG/2 ML INJ ONE (20:02)
[2017-08-18] MEDS ORDERED: BUPIVACAINE HCL 0.25% /EPINEPHRINE INJ/PF 30 ML SDV ONE (20:14)
[2017-08-18] MEDS ORDERED: LIDOCAINE 1% INJ-PF (10 MG/ML) 30 ML SDV ONE (20:28)
[2017-08-18] MEDS ORDERED: DIPHENHYDRAMINE HCL 50 MG/ML VIAL IV PRN (20:33)
[2017-08-18] MEDS ORDERED: FENTANYL CITRATE INJ/PF 100 MCG/2 ML AMPUL IV PRN ×3 (20:33)
[2017-08-18] MEDS ORDERED: ACETAMINOPHEN 100 ML IV ONE (21:29)
[2017-08-18] MEDS ORDERED: ONDANSETRON HCL INJ/PF 4 MG/2 ML SDV IV PRN (21:42)
[2017-08-18] MEDS ORDERED: NORMAL SALINE 1000 ML 1,000 ML IV PRN ×2 (21:44→21:47)
[2017-08-18] MEDS ORDERED: IBUPROFEN INJ 800 MG/8 ML VIAL IV ONE ×2 (22:00→22:48)
--- NOTE | 2017-08-18 22:37 | OPERATIVE REPORT E ---
Operative Report NAME: BERTA MARIE : 1975 AGE: 41Y DATE OF SURGERY: 08/18/2017 ROOM: 531 PREOPERATIVE DIAGNOSIS: Right perirectal abscess. POSTOPERATIVE DIAGNOSIS: Fistula in anus with abscess. OPERATION: Fistulotomy and evacuation of abscess. SURGEON: SHEREEN GARVEY M.D. ANESTHESIA: Local MAC TISSUE REMOVED OR ALTERED: INDICATIONS: A 41-year-old diabetic female complaining of pain in the rectal area for the past 2 weeks and becoming worse in the past 3 days. Patient has marked tenderness and swelling along the right perirectal area. PROCEDURE: After adequate IV sedation, patient is placed in prone position, semi-jackknife position and right perianal area prepped and draped in the usual sterile fashion. Appropriate time-out was called. Local anesthesia infiltrated around palpated swelling on the right perirectal area. A radial incision was made and a small amount of purulent material was noted and a specimen was sent for C and S. The cavity was able to be inspected with index finger and a little tunnel towards the area of the opposite side was noted. No other obvious tunneling noted. The rectal area was inspected and there was a small opening that the probe was able to be passed through towards the area of the abscess site. Another bigger probe was passed and the fistulotomy and partial fistulectomy was performed with the use of cautery. Further hemostasis obtained with cautery. The defect in the anal mucosa was very close to the dentate line. On the small amount of the external ring muscle was needed to be excised. The whole tract was then excised with the cautery, though quite a short tract may be at most 1.5 cm long. The whole incision was about 4 cm long from the skin to inside the mucosa. Next, the area was then irrigated with saline solution and no other area of pus was noted. Some of the bleeders were coagulated with cautery. Next, the area defect was then packed with Surgicel. A large Surgicel was used and 3 other small 2-inches x 2-inches Surgicel were used to pack and control the bleeding. Adequate hemostasis was noted. Sterile gauze was placed around the incision site and the ABD pad was placed over it. Patient tolerated the procedure well, brought to the PACU in satisfactory condition. Needle and sponge counts were all correct. Estimated blood loss about 10 mL. DICTATING PHYSICIAN: SHEREEN GARVEY M.D. [id number] PHY#: [id number] ID: [id number] JOB#: [id number] ACCT: [id number] cc:SHEREEN GARVEY M.D. >
[2017-08-19] MEDS ORDERED: ALBUTEROL SULFATE HFA (90 MCG/PUFF) 8 GM MDI (1 MDI/ER DISP) IH PRN (00:29)
[2017-08-19] MEDS ORDERED: MECLIZINE HCL 25 MG TABLET PO PRN (00:29)
[2017-08-19] MEDS ORDERED: ALBUTEROL SULFATE 0.083% NEB 2.5 MG/3 ML AMPUL NEB PRN ×2 (00:29→07:28)
[2017-08-19] MEDS ORDERED: ONDANSETRON 4 MG TAB.RAPDIS PO PRN (00:29)
[2017-08-19] MEDS ORDERED: IBUPROFEN 800 MG TABLET PO PRN (00:29)
--- NOTE | 2017-08-19 00:32 | HISTORY AND PHYSICAL E ---
History and Physical NAME: BERTA MARIE : 1975 AGE: 41Y ADMITTED: 08/18/2017 ROOM: 531 CHIEF COMPLAINT: Perirectal pains. HISTORY OF PRESENT ILLNESS: This is a 41-year-old diabetic complaining of pains in the perirectal area for the past 2 weeks and worse since 3 days ago. She has pains on sitting, standing, movement or even walking. She was at Dr. Hernandez's office today and sent back to the emergency room for surgical consultation. REVIEW OF SYSTEMS: GI: As in HPI. All other systems reviewed were negative. Constitutional: Denies any fever. ENT: Denies any congestion. Neurologic: Denies headaches. Cardiovascular: Denies chest pain. Respiratory: Denies trouble breathing. Gastrointestinal: Denies abdominal pains and rectal pains positive and as in HPI. Urinary: Denies dysuria. Reproductive: Denies . Musculoskeletal: Denies extremity pains. Dermatology: Normal skin color. SOCIAL HISTORY: She has never smoked and no alcohol use. Denies recreational drug use. PAST HISTORY: 1. Cardiac history, reports hypertension. 2. Pulmonary history, reports asthma, mild. 3. Neurological history, reports history of migraine. 4. Endocrine medical history, reports diabetes type 2. 5. Renal medical history, reports kidney stones. 6. GI medical history, reports gastroesophageal reflux. 7. Psychiatric medical history, reports history of bipolar and depression. 8. Traumatic medical history, reports history of fracture of arm years ago. PAST SURGICAL HISTORY: Reports laparoscopic cholecystectomy, partial hysterectomy in 1998, orthopedic surgery in right foot and history of tubal ligation. PHYSICAL EXAMINATION: GENERAL: The patient is a 41-year-old morbidly obese male, alert and oriented, complaining of perirectal pains. HEENT: Atraumatic, normocephalic. RESPIRATORY: Breath sounds normal, no wheezing. CARDIOVASCULAR: Regular rate and rhythm. Tachycardic. GASTROINTESTINAL: Abdomen soft, nontender. RECTAL: Area is large, very tender, right perirectal swelling, very tender. Unable to do rectal exam due to pains. The patient is supposed to have a hemorrhoid surgery at [facility] on 09/08/2017. EXTREMITIES: Regular range of motion. NEUROLOGIC: Awake, alert and oriented x3. DERMATOLOGIC: Integumentary is warm, dry. Perirectal abscess, right side. VITAL SIGNS: Temperature 98.6 Fahrenheit, pulse 112 per minute, respirations 16 per minute, BP 145/87, pulse oximetry of 98% on room air. LABORATORY DATA: White count of 13.7, blood sugar of 162. IMPRESSION: 1. Right perirectal abscess. 2. Diabetes mellitus type 2. 3. History of bipolar. PRIMARY PHYSICIAN: Dr. Bailey. DICTATING PHYSICIAN: SHEREEN GARVEY M.D. [id number] PHY#: [id number] ID: [id number] JOB#: [id number] ACCT: [id number] cc:Letty MARES M.D. >
[2017-08-19] MEDS: METRONIDAZOLE 500 MG/NS RTU 100 ML IV SCH ×3 (02:32→17:51)
[2017-08-19] MEDS: OXYCODONE-ACETAMINOPHEN 5-325 MG TABLET PO PRN ×4 (02:38→20:54)
[2017-08-19] MEDS: LANSOPRAZOLE 15 MG TAB.RAP.DR PO SCH ×2 (06:19→17:52)
[2017-08-19] MEDS: GABAPENTIN 400 MG CAPSULE PO SCH ×3 (06:19→21:53)
[2017-08-19] MEDS: CIPROFLOXACIN 400 MG/D5W RTU 400 MG/200 ML RTUPB IV SCH ×2 (06:20→17:55)
[2017-08-19 06:49] LABS: ABSOLUTE EOSINOPHILS # (AUTO) 0.3 10^3/uL (0.0-0.6); ABSOLUTE LYMPHOCYTES (AUTO) 3.7 10^3/uL (0.5-4.7); ABSOLUTE MONOCYTES (AUTO) 0.8 10^3/uL (0.1-1.4); ABSOLUTE NEUT (AUTO) 6.1 10^3/uL (1.7-8.2); BASOPHILS % (AUTO) 0.3 % (0-2); EOSINOPHILS % (AUTO) 2.5 % (0-6); HEMATOCRIT 33.5 % (36.0-47.0); HEMOGLOBIN 11.6 g/dL (12.0-15.5); HGB HCT DIFFERENCE 1.3; LYMPHOCYTES % (AUTO) 34.3 % (13-45); MEAN CORPUSCULAR HEMOGLOBIN 28.4 pg (27.0-33.4); MEAN CORPUSCULAR HGB CONC 34.8 g/dL (32.0-36.0); MEAN CORPUSCULAR VOLUME 82 fl (80-97); MONOCYTES % (AUTO) 7.3 % (3-13); RED CELL DISTRIBUTION WIDTH 16.9 % (11.5-14.0); SEGMENTED NEUTROPHILS % (AUTO) 55.6 % (42-78); WHITE BLOOD COUNT 10.9 10^3/uL (4.0-10.5)
[2017-08-19 06:57] LABS: ANION GAP 9 (5-19); BLOOD UREA NITROGEN 8 mg/dL (7-20); CALCIUM 8.8 mg/dL (8.4-10.2); CARBON DIOXIDE 25 mmol/L (22-30); CHLORIDE 104 mmol/L (98-107); CREATININE RESULT 0.51 mg/dL (0.52-1.25); GLUCOSE 120 mg/dL (75-110); POTASSIUM 4.4 mmol/L (3.6-5.0); SODIUM 137.9 mmol/L (137-145)
[2017-08-19] MEDS: MORPHINE SULFATE 10 MG/ML INJ IV PRN ×3 (07:16→18:19)
[2017-08-19] MEDS ORDERED: ALBUTEROL SULFATE HFA (90 MCG/PUFF) 200 PUFF/8.5 GM MDI IH PRN (07:26)
[2017-08-19] MEDS: METFORMIN HCL 500 MG TABLET PO SCH (08:42)
[2017-08-19] MEDS: FERROUS SULFATE 325 MG TABLET PO SCH (09:48)
[2017-08-19] MEDS: ZIPRASIDONE HCL 40 MG CAPSULE PO SCH ×2 (09:50→21:52)
[2017-08-19] MEDS: LAMOTRIGINE 100 MG TABLET PO SCH (09:51)
[2017-08-19] MEDS: MELOXICAM 15 MG TABLET PO SCH (09:52)
[2017-08-19] MEDS: FLUTICASONE NASAL SPRAY 50 MCG/SPRY 120 SPRAY/16 GM NASL SCH (09:54)
[2017-08-19] MEDS: FLUTICASONE/SALMETEROL DISKUS 250-50 MCG/DOSE IH SCH ×2 (09:56→21:54)
[2017-08-19] MEDS ORDERED: (PENDING PHARMACY ID) (Ziprasidone Hcl [Geodon] 80 MG) PO SCH (10:00)
[2017-08-19] MEDS ORDERED: ENOXAPARIN SODIUM INJ 40 MG/0.4 ML DISP.SYRIN SUBCUT SCH (10:00)
[2017-08-19] MEDS ORDERED: (PENDING PHARMACY ID) (Lisinopril/Hydrochlorothiazide [Zestoretic 10-12.5 Mg Tablet] 1 TAB PO SCH (10:00)
[2017-08-19] MEDS ORDERED: LAMOTRIGINE 300 MG PO SCH (10:00)
[2017-08-19] MEDS ORDERED: (PENDING PHARMACY ID) (Dextroamphetamine/Amphetamine [Adderall Xr 20 Mg Capsule] 20 MG) PO SCH (10:00)
[2017-08-19] MEDS ORDERED: (PENDING PHARMACY ID) (Doxepin Hcl [Doxepin Hcl] 50 MG) PO SCH (10:00)
[2017-08-19] MEDS ORDERED: (PENDING PHARMACY ID) (Diclofenac Sodium [Voltaren] 1 GM) TOP SCH (10:00)
[2017-08-19] MEDS ORDERED: LANSOPRAZOLE 15 MG TAB.RAP.DR PO SCH (10:00)
[2017-08-19] MEDS ORDERED: HYDROCHLOROTHIAZIDE 12.5 MG CAPSULE PO SCH (10:00)
[2017-08-19] MEDS ORDERED: LISINOPRIL 10 MG TABLET PO SCH (10:00)
[2017-08-19] MEDS: DOXEPIN HCL 25 MG CAPSULE PO SCH (11:20)
--- NOTE | 2017-08-19 16:12 | PROGRESS NOTE E ---
Progress Note NAME: BERTA MARIE : 1975 AGE: 41Y DATE: 08/19/2017 ROOM: 531 SUBJECTIVE: Today is her first postop day post fistulotomy. She is complaining of severe pains at the operative site requiring parenteral pain medications. She refused to go home today, because she said the p.o. pain medication is not going to hold her pain. PLAN: The plan is to start her on hot sitz bath today and hopefully this will relieve some of her inflammation and pains in the perirectal area, and hopefully she can be discharged early tomorrow morning on p.o. pain medications and p.o. antibiotic, Cipro. DICTATING PHYSICIAN: SHEREEN GARVEY M.D. [id number] PHY#: [id number] ID: [id number] JOB#: [id number] ACCT: [id number] cc: >
[2017-08-20] MEDS: METRONIDAZOLE 500 MG/NS RTU 100 ML IV SCH (02:46)
[2017-08-20] MEDS: MORPHINE SULFATE 10 MG/ML INJ IV PRN (03:29)
[2017-08-20] MEDS: LANSOPRAZOLE 15 MG TAB.RAP.DR PO SCH (05:59)
[2017-08-20] MEDS: CIPROFLOXACIN 400 MG/D5W RTU 400 MG/200 ML RTUPB IV SCH (05:59)
[2017-08-20] MEDS: GABAPENTIN 400 MG CAPSULE PO SCH (06:00)
--- NOTE | 2017-08-20 07:37 | DISCHARGE SUMMARY E ---
Discharge Summary NAME: BERTA MARIE : 1975 AGE: 41Y ADMITTED: 08/18/2017 DISCHARGED: 08/20/2017 FINAL DIAGNOSIS: Anal fistula with abscess. PROCEDURE DONE: Fistulotomy with drainage of abscess 08/18/2017. HOSPITAL COURSE: This is a 41-year-old female who noted pains in the perirectal area. She was supposed to be scheduled for evaluation of hemorrhoids at [facility] on 09/08. Patient noted to have tender swelling along the right perirectal area in the emergency room. Patient then underwent incision and drainage of abscess in the perirectal area and then noted to have an anal fistula. The fistula was opened and part of it excised with the use of cautery. The area was packed with Surgicel. Patient complained of significant pains yesterday requiring parenteral pain medication and therefore unable to be discharged. She was started on hot sitz bath last night, which she claimed help the pain, and this morning, felt a lot better and can be discharged no p.o. Percocet and p.o. Cipro for the next 7 days. She was advised to continue with hot sitz baths 4 times a day for the next week and to be followed up in the surgical clinic in 2 weeks. There is no restriction as far as food, but avoid any heavy lifting for the next week. DICTATING PHYSICIAN: SHEREEN GARVEY M.D. [id number] PHY#: [id number] ID: [id number] JOB#: [id number] ACCT: [id number] cc:Letty MARES M.D. SUE RAYNOR, F.NElio. >
[2017-08-20] MEDS: OXYCODONE-ACETAMINOPHEN 5-325 MG TABLET PO PRN (08:33)
[2017-08-20] MEDS: METFORMIN HCL 500 MG TABLET PO SCH (08:35)
[2017-08-20] MEDS: ZIPRASIDONE HCL 40 MG CAPSULE PO SCH (10:05)
[2017-08-20] MEDS: MELOXICAM 15 MG TABLET PO SCH (10:06)
[2017-08-20] MEDS: LAMOTRIGINE 100 MG TABLET PO SCH (10:06)
[2017-08-20] MEDS: FERROUS SULFATE 325 MG TABLET PO SCH (10:06)
[2017-08-20] MEDS: FLUTICASONE/SALMETEROL DISKUS 250-50 MCG/DOSE IH SCH (10:07)
[2017-08-20] MEDS: FLUTICASONE NASAL SPRAY 50 MCG/SPRY 120 SPRAY/16 GM NASL SCH (10:08)
[2017-08-20] MEDS: DOXEPIN HCL 25 MG CAPSULE PO SCH (10:11)
[2017-08-20 10:42] VITALS: BP 90/51
== END 2017-08-20 11:45 | disposition home or self-care (01) ==
LOC: ER 15:59 → EH 19:12 → INTOOBSV 19:12 → UNDOADMOB 19:12 → EH 21:47 → 5 22:00
PROVIDERS: ATTEND Surgery
PROC: 0J9B0ZZ Drainage of Perineum Subcutaneous Tissue and Fascia, Open Approach (ICD-10-PCS; 2017-08-18)
PROC: 0DBQ0ZZ Excision of Anus, Open Approach (ICD-10-PCS; principal; 2017-08-18 21:30)
DX: K61.0 Anal abscess (principal); E11.9 Type 2 diabetes mellitus without complications; E66.01 Morbid (severe) obesity due to excess calories; G89.18 Other acute postprocedural pain; R00.0 Tachycardia, unspecified; F31.9 Bipolar disorder, unspecified; Z68.43 Body mass index [BMI] 50.0-59.9, adult; Z90.49 Acquired absence of other specified parts of digestive tract
CPT/HCPCS: 46060; 99284; 96374; 36415 ×2; 87040; 87086; 87070; 87205; 83605 ×2; 85025 ×2; 85610; 87075; 87077; 80048; 80053; 81001; 87186; 82803; 88305 ×2; A6266; J2250; J3490 ×12; J3010; J2765; J2270 ×2; J7030; J2704; J0744 ×2; S0028; J0131; J1741; 902

== ENCOUNTER 2017-09-04 19:05 | Emergency (ER) | payer OTHER, MEDICAID ==
[2017-09-04 19:21] VITALS: BP 139/78
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
[2017-09-04] MEDS ORDERED: CYCLOBENZAPRINE HCL 10 MG TABLET PO ONE (20:58)
[2017-09-04] MEDS ORDERED: HYDROCODONE/ACETAMINOPHEN 5-325 MG TABLET PO ONE (20:58)
== END 2017-09-04 21:21 | disposition home or self-care (01) ==
LOC: ER 19:05
DX: S16.1XXA Strain of muscle, fascia and tendon at neck level, initial encounter (principal); M25.511 Pain in right shoulder; V43.62XA Car passenger injured in collision with other type car in traffic accident, initial encounter; I10 Essential (primary) hypertension; E11.9 Type 2 diabetes mellitus without complications; Z87.442 Personal history of urinary calculi; Z90.710 Acquired absence of both cervix and uterus
CPT/HCPCS: 99283

== ENCOUNTER → 2017-11-25 | Outpatient (CLI) | payer MEDICAID ==
--- NOTE | 2017-11-26 09:25 | WOMENS IMAGING REPORT ---
EXAM DESCRIPTION: BILAT SCREENING MAMMO W/CAD COMPLETED DATE/TIME: 11/25/2017 1:23 pm REASON FOR STUDY: ROUTINE SCREENING; Z12.31 Z12.31 ENCNTR SCREEN MAMMOGRAM FOR MALIGNANT NEOPLASM O F JAYE COMPARISON: 11/11/2016 TECHNIQUE: Standard craniocaudal and mediolateral oblique views of each breast recorded using Youtuoa l acquisition. LIMITATIONS: None. FINDINGS: No masses, calcifications or architectural distortion. No areas of suspicion. Read with the assistance of CAD. .[facility] - R2 Cenova Version 1.3 .[facility] Imaging - R2 Cenova Version 1.3 .[facility] Imaging - R2 Cenova Version 2.4 .[facility] - R2 Cenova Version 2.4 .[facility] - R2 Merchandising Manager Version 9.2 IMPRESSION: NORMAL MAMMOGRAM. BIRADS 1. BREAST DENSITY: b. There are scattered areas of fibroglandular density. BIRAD: 1 NEGATIVE RECOMMENDATION: ROUTINE SCREENING COMMENT: The patient has been notified of the results by letter per SA requirements. Additional no tification policies are in place for contacting patient with suspicious or incomplete findings. Quality ID #[id number]: The [employer] recommends an annual screening mammogram for women aged 40 years or over. This facility utilizes a reminder system to ensure that all patients receive reminder letters, and/or direct phone calls for appointments. This includes reminders for routine scr eening mammograms, diagnostic mammograms, or other Breast Imaging Interventions when appropriate. Th is patient will be placed in the appropriate reminder system. The [employer] (ACR) has developed recommendations for screening MRI of the breast s in certain patient populations, to be used in conjunction with mammography. Breast MRI surveillanc e may be appropriate for women with more than 20% lifetime risk of developing breast cancer as deter mined by genetic testing, significant family history of the disease, or history of mantle radiation f or Hodgkins Disease. ACR Practice Guidelines 2008. TECHNICAL DOCUMENTATION: FINDING NUMBER: (1) ASSESSMENT: (1) JOB ID: [id number] [employer]- All Rights Reserved
== END ==
LOC: WI 10:08
PROVIDERS: ATTEND Internal Medicine Geriatric Medicine
DX: Z12.31 Encounter for screening mammogram for malignant neoplasm of breast (principal)
CPT/HCPCS: 77067

== ENCOUNTER → 2019-01-17 | Outpatient (CLI) | payer MEDICAID ==
--- NOTE | 2019-01-17 15:11 | WOMENS IMAGING REPORT ---
EXAM DESCRIPTION: 3D SCREENING MAMMO BILAT COMPLETED DATE/TIME: 01/17/2019 2:06 pm REASON FOR STUDY: Z12.31 ENCOUNTER FOR SCREENING MAMMOGRAM FOR MALIGNANT NEOPLASM OF BREAST Z12.31 ENCNTR SCREEN MAMMOGRAM FOR MALIGNANT NEOPLASM OF JAYE COMPARISON: 2015, 2017 TECHNIQUE: Standard craniocaudal and mediolateral oblique views of each breast recorded using digita l acquisition and breast tomosynthesis. LIMITATIONS: None. FINDINGS: No masses, calcifications or architectural distortion. No areas of suspicion. Read with the assistance of CAD. .[facility] - R2 Cenova Version 1.3 .[facility] Imaging - R2 Cenova Version 2.1 .[facility] Imaging - R2 Cenova Version 2.4 .[facility] - R2 Cenova Version 2.4 .[facility] - R2 Shared Services Manager Version 9.2 IMPRESSION: NORMAL MAMMOGRAM. BIRADS 1. BREAST DENSITY: b. There are scattered areas of fibroglandular density. BIRAD: 1 NEGATIVE RECOMMENDATION: ROUTINE SCREENING COMMENT: The patient has been notified of the results by letter per MQSA requirements. Additional no tification policies are in place for contacting patient with suspicious or incomplete findings. Quality ID #[id number]: The [employer] recommends an annual screening mammogram for women aged 40 years or over. This facility utilizes a reminder system to ensure that all patients receive reminder letters, and/or direct phone calls for appointments. This includes reminders for routine scr eening mammograms, diagnostic mammograms, or other Breast Imaging Interventions when appropriate. Th is patient will be placed in the appropriate reminder system. The [employer] (ACR) has developed recommendations for screening MRI of the breast s in certain patient populations, to be used in conjunction with mammography. Breast MRI surveillanc e may be appropriate for women with more than 20% lifetime risk of developing breast cancer as deter mined by genetic testing, significant family history of the disease, or history of mantle radiation f or Hodgkins Disease. ACR Practice Guidelines 2008. DBT Technology DBT is a type of tomographic mammography. With conventional mammography, overlapping breast tissue ma y make lesions difficult to detect, even with good compression. DBT uses an x-ray tube that rotates a round the breast, taking images at different angles. These images are then combined to create thin sl ices of the breast that the radiologist can view as a 3D reconstruction. The [employer] unit can perform full-field digital mammograms (2D imaging); or DBT (3D imaging); or both, in a combination mode that quickly performs both the mammogram and the tomosynthesis scan while the breast is still compressed. PQRS 6045F: Fluoroscopic imaging is not utilized for breast tomosynthesis. TECHNICAL DOCUMENTATION: FINDING NUMBER: (1) ASSESSMENT: (1) JOB ID: [id number] [employer]- All Rights Reserved Reading location - IP/workstation name: [email or web address]
== END ==
LOC: WI 13:44
PROVIDERS: ATTEND Internal Medicine Geriatric Medicine
DX: Z12.31 Encounter for screening mammogram for malignant neoplasm of breast (principal)
CPT/HCPCS: 77063; 77067

== ENCOUNTER 2020-05-09 17:33 | Inpatient (IN) | payer MEDICAID ==
--- NOTE | 2020-05-09 18:50 | PDOC H&P ---
History of Present Illness Admission Date/PCP: 05/09/20 17:33 NICHELLE CARMELA Patient complains of: Abdominal pain History of Present Illness: BERTA MARIE is a 44 year old female known to my practice who presented to the office earlier today with several hours of abdominal pain that she described as sharp, localized to left side of her abdomen moving from the mid portion up and down and associated with nausea but no vomiting. Pain is worsen with movement. She denied fever or chills but breakout with sweats and felt warm. She reported associated urinary frequency, incontinence, muscle aches, back pain, weakness, fatigue and poor sleep due to her overall ill health She reported shortness of breathing with walking and history of kidney stone. Her initial evaluation in the office physical examination revealed LUQ, LLQ, and CVA tenderness to palpation and percussion respectively. Her laboratory assessment revealed leukocytosis with left shift, abnormal urinalysis with positive screen for UTI and . Past Medical History Cardiac Medical History: Reports: Hypertension Denies: Coronary Artery Disease, Myocardial Infarction Pulmonary Medical History: Reports: Asthma - MILD Denies: Bronchitis, Chronic Obstructive Pulmonary Disease (COPD), Pneumonia, Tuberculosis Neurological Medical History: Reports: Migraine Denies: Seizures Endocrine Medical History: Reports: Diabetes Mellitus Type 2 GI Medical History: Reports: Gastroesophageal Reflux Disease Musculoskeltal Medical History: Reports: Arthritis Psychiatric Medical History: Reports: Bipolar Disorder, Depression - anxiety Hematology: Reports: Anemia Past Surgical History Past Surgical History: Reports: Cholecystectomy, Hysterectomy, Orthopedic Surgery - right foot, Tubal Ligation Denies: Pacemaker Social History Information Source: Patient Lives with: Spouse/Significant other Smoking Status: Never Smoker Frequency of Alcohol Use: None Hx Recreational Drug Use: No Drugs: None Hx Prescription Drug Abuse: No - Advance Directive Resuscitation Status: Full Code Family History Family History: Reviewed & Not Pertinent Parental Family History Reviewed: Yes Children Family History Reviewed: Yes Sibling(s) Family History Reviewed.: Yes Medication/Allergy Home Medications: Albuterol Sulfate [Albuterol Sulfate 2.5mg/3 mL] 1 vial NEB Q4HP PRN 08/18/17 Albuterol Sulfate [Proair HFA] 2 puff IH Q4HP PRN 08/18/17 Dextroamphetamine/Amphetamine [Adderall XR 20 mg Capsule] 20 mg PO DAILY 08/18/17 Diclofenac Sodium [Voltaren] 1 gm TOP QID 08/18/17 Doxepin HCl 50 mg PO DAILY 08/18/17 Ferrous Sulfate [Feosol] 325 mg PO DAILY 08/18/17 Fluticasone Propionate [Flonase Nasal Gilmer 50 Mcg/Gilmer 16 gm] 2 spray NASL DAILY 08/18/17 Fluticasone/Salmeterol [Advair 250-50 Diskus 28 dose] 1 puff IH Q12 08/18/17 Gabapentin [Neurontin 400 mg Capsule] 800 mg PO Q8 08/18/17 Ibuprofen [Motrin 800 mg Tablet] 800 mg PO Q8HP PRN 08/18/17 Lamotrigine [Lamictal] 300 mg PO DAILY 08/18/17 Lisinopril/Hydrochlorothiazide [Zestoretic 10-12.5 mg Tablet] 1 tab PO DAILY 08/18/17 Meclizine HCl [Antivert 25 mg Tablet] 25 mg PO Q8HP PRN 08/18/17 Meloxicam [Mobic] 15 mg PO DAILY 08/18/17 Metformin HCl [Glucophage] 1,000 mg PO DAILY 08/18/17 Omeprazole 20 mg PO BID 08/18/17 Ondansetron [Zofran Odt 4 mg Tablet] 4 mg PO QIDP PRN 08/18/17 Ziprasidone HCl [Geodon] 80 mg PO BID 08/18/17 Cyclobenzaprine HCl [Flexeril 5 mg Tablet] 5 mg PO TID #15 tablet 09/04/17 Hydrocodone/Acetaminophen [Hardwick 5-325 mg Tablet] 1 tab PO PRN PRN #15 tablet 09/04/17 Allergies/Adverse Reactions: aripiprazole [From Abilify] Allergy (Severe, Verified 09/04/17 19:16) suicidal thoughts divalproex sodium [From Depakote] Allergy (Severe, Verified 09/04/17 19:16) n and v lithium [[place]] Allergy (Severe, Verified 09/04/17 19:16) n and v Sulfa (Sulfonamide Antibiotics) Allergy (Severe, Verified 09/04/17 19:16) itching hives gluten Allergy (Verified 09/04/17 19:16) antidepressants Allergy (Severe, Uncoded 08/18/17 16:23) manic tape Allergy (Severe, Uncoded 08/18/17 16:23) rash Review of Systems ROS unobtainable: Due to endotracheal tube, Due to mental status, Other Constitutional: PRESENT: chills, weakness Eyes: ABSENT: visual disturbances Ears: ABSENT: hearing changes Nose, Mouth, and Throat: ABSENT: headache(s), mouth pain, sore throat, vertigo Cardiovascular: PRESENT: dyspnea on exertion. ABSENT: chest pain, edema, orthropnea, palpitations Respiratory: PRESENT: dyspnea - with walking. ABSENT: cough, hemoptysis, sputum Gastrointestinal: PRESENT: abdominal pain, nausea. ABSENT: bloating, coffee ground emesis, constipation, diarrhea, dysphagia, heartburn, hematemesis, melena, vomiting Genitourinary: PRESENT: other - frequency and incontinence. ABSENT: difficulty urinating, dysuria, hematuria Musculoskeletal: ABSENT: joint swelling Integumentary: ABSENT: rash, wounds Neurological: ABSENT: abnormal gait, abnormal speech, confusion, dizziness, focal weakness, syncope Psychiatric: ABSENT: anxiety, depression, homidical ideation, suicidal ideation Endocrine: PRESENT: flushing. ABSENT: cold intolerance, heat intolerance, menstrual abnormalities, polydipsia, polyphagia, polyuria Hematologic/Lymphatic: ABSENT: easy bleeding, easy bruising, lymphadenopathy Allergic/Immunologic: ABSENT: seasonal rhinorrhea Physical Exam Vital Signs: Intake & Output 05/08/20 05/09/20 05/10/20 06:59 06:59 06:59 Weight 152.52 kg General appearance: PRESENT: mild distress - from expressed ongoing pain that she graded at 6/10, morbidly obese Head exam: PRESENT: atraumatic, normocephalic Eye exam: PRESENT: conjunctiva pink, EOMI, PERRLA. ABSENT: scleral icterus Ear exam: PRESENT: normal external ear exam Mouth exam: PRESENT: moist, tongue midline Neck exam: PRESENT: full ROM. ABSENT: carotid bruit, JVD, lymphadenopathy, thyromegaly Respiratory exam: PRESENT: clear to auscultation al, decreased breath sounds - at lung bases Cardiovascular exam: PRESENT: RRR, +S1, +S2. ABSENT: diastolic murmur, rubs, systolic murmur Pulses: PRESENT: normal dorsalis pedis pul, +2 pedal pulses bilateral Vascular exam: PRESENT: normal capillary refill. ABSENT: pallor GI/Abdominal exam: PRESENT: normal bowel sounds, soft, tenderness - LUQ, LLQ, and left CVA region. ABSENT: distended, guarding, mass, organolmegaly, rebound Rectal exam: PRESENT: deferred Extremities exam: ABSENT: pedal edema Musculoskeletal exam: PRESENT: normal inspection Neurological exam: PRESENT: alert, awake, oriented to person, oriented to place, oriented to time, oriented to situation, CN II-XII grossly intact. ABSENT: motor sensory deficit Psychiatric exam: PRESENT: appropriate affect, normal mood. ABSENT: homicidal ideation, suicidal ideation Skin exam: PRESENT: dry, intact, warm. ABSENT: cyanosis, rash Results Laboratory Results: As noted in the office documentation since at the time of my evaluation in the hospital her lab assessment are pending. Assessment & Plan - Diagnosis (1) Acute pyelonephritis Is this a current diagnosis for this admission?: Yes Plan: See admitting attending physician orders for details about care plan. (2) Diabetes mellitus type 2 in obese Is this a current diagnosis for this admission?: Yes Plan: See admitting attending physician orders for details about care plan. (3) HTN (hypertension) Qualifiers: Hypertension type: essential hypertension Qualified Code(s): I10 - Essential (primary) hypertension Is this a current diagnosis for this admission?: Yes Plan: See admitting attending physician orders for details about care plan. (4) HLD (hyperlipidemia) Qualifiers: Hyperlipidemia type: unspecified Qualified Code(s): E78.5 - Hyperlipidemia, unspecified Is this a current diagnosis for this admission?: Yes Plan: See admitting attending physician orders for details about care plan. (5) Chronic pain syndrome Is this a current diagnosis for this admission?: Yes Plan: See admitting attending physician orders for details about care plan. (6) Chronic use of opiate drug for therapeutic purpose Is this a current diagnosis for this admission?: Yes Plan: See admitting attending physician orders for details about care plan. (7) Rheumatoid arthritis Qualifiers: Laterality: unspecified laterality Is this a current diagnosis for this admission?: Yes Plan: See admitting attending physician orders for details about care plan. (8) Asthma Qualifiers: Asthma persistence: intermittent Asthma complication type: unspecified Is this a current diagnosis for this admission?: Yes Plan: See admitting attending physician orders for details about care plan. (9) Bipolar disorder Qualifiers: Active/Remission status: currently active Is this a current diagnosis for this admission?: Yes Plan: See admitting attending physician orders for details about care plan. (10) Mixed anxiety and depressive disorder Is this a current diagnosis for this admission?: Yes Plan: See admitting attending physician orders for details about care plan. - Time Time Spent: 50 to 70 Minutes Medications reviewed and adjusted accordingly: Yes Anticipated discharge: Home Within: Other - Inpatient Certification Based on my medical assessment, after consideration of the patient's comorbidities, presenting symptoms, or acuity I expect that the services needed warrant INPATIENT care.: Yes I certify that my determination is in accordance with my understanding of Medicare's requirements for reasonable and necessary INPATIENT services [42 CFR 412.3e].: Yes Medical Necessity: Significant Comorbidiites Make Outpatient Treatment Too Risky, Need Close Monitoring Due to Risk of Patient Decompensation, Need For IV Fluids, Need For Continuous Telemetry Monitoring, Need for IV Antibiotics, Risk of Complication if Not Cared For in Hospital, Risk of Diagnosis Which Will Require Inpatient Eval/Care/Monitoring Post Hospital Care: D/C Forensic Psychiatrist Documentation - Plan Summary Plan Summary: See admitting attending physician orders for details about care plan.
[2020-05-09 18:57] LABS: ABSOLUTE BASOPHILS # (AUTO) 0.1 10^3/uL (0.0-0.2); ABSOLUTE EOSINOPHILS # (AUTO) 0.4 10^3/uL (0.0-0.6); ABSOLUTE LYMPHOCYTES (AUTO) 1.5 10^3/uL (0.5-4.7); ABSOLUTE MONOCYTES (AUTO) 0.9 10^3/uL (0.1-1.4); ABSOLUTE NEUT (AUTO) 11.7 10^3/uL (1.7-8.2); BASOPHILS % (AUTO) 0.8 % (0-2); EOSINOPHILS % (AUTO) 2.9 % (0-6); HEMATOCRIT 35.7 % (36.0-47.0); HEMOGLOBIN 11.1 g/dL (12.0-15.5); LYMPHOCYTES % (AUTO) 10.5 % (13-45); MEAN CORPUSCULAR HEMOGLOBIN 20.4 pg (27.0-33.4); MEAN CORPUSCULAR HGB CONC 31.1 g/dL (32.0-36.0); MEAN CORPUSCULAR VOLUME 66 fl (80-97); PLATELET COUNT 337 10^3/uL (150-450); RED BLOOD COUNT 5.42 10^6/uL (3.72-5.28); RED CELL DISTRIBUTION WIDTH 19.4 % (11.5-14.0); SEGMENTED NEUTROPHILS % (AUTO) 79.8 % (42-78); TOTAL CELLS COUNTED % (AUTO) 100 %; WHITE BLOOD COUNT 14.6 10^3/uL (4.0-10.5)
[2020-05-09] MEDS ORDERED: ACETAMINOPHEN 325 MG TABLET PO PRN (19:04)
[2020-05-09 19:16] LABS: ALBUMIN 4.5 g/dL (3.5-5.0); ALKALINE PHOSPHATASE 161 U/L (38-126); ANION GAP 11 (5-19); ASPARTATE AMINO TRANSFERASE 32 U/L (14-36); BILIRUBIN,TOTAL 0.6 mg/dL (0.2-1.3); BLOOD UREA NITROGEN 13 mg/dL (7-20); CALCIUM 9.8 mg/dL (8.4-10.2); CARBON DIOXIDE 30 mmol/L (22-30); CHLORIDE 92 mmol/L (98-107); GLUCOSE 177 mg/dL (75-110); POTASSIUM 4.4 mmol/L (3.6-5.0); TOTAL PROTEIN 7.8 g/dL (6.3-8.2)
[2020-05-09 19:26] LABS: APPEARANCE,URINE CLEAR; BILIRUBIN,URINE NEGATIVE (NEGATIVE); COLOR,URINE YELLOW; GLUCOSE, URINE >=500 mg/dL (NEGATIVE); KETONES,URINE TRACE mg/dL (NEGATIVE); PROTEIN,URINE NEGATIVE (NEGATIVE); URINE SPECIFIC GRAVITY 1.027; UROBILINOGEN,URINE NEGATIVE mg/dL (<2.0)
[2020-05-09] MEDS ORDERED: DEXTROSE 50%-WATER SYRINGE 12.5 GM/25 ML DOSE IV PRN (19:30)
[2020-05-09] MEDS ORDERED: DEXTROSE 40% GEL 15 GM TUBE X 2 PO PRN (19:30)
[2020-05-09] MEDS ORDERED: GLUCAGON,HUMAN RECOMB 1 MG INJ IM PRN (19:30)
[2020-05-09] MEDS ORDERED: DEXTROSE 50%-WATER SYRINGE 25 GM/50 ML DOSE IV PRN (19:30)
[2020-05-09] MEDS ORDERED: DEXTROSE 40% GEL 15 GM TUBE PO PRN (19:30)
[2020-05-09] MEDS: NORMAL SALINE 1000 ML 1,000 ML IV PRN (20:35)
[2020-05-09] MEDS ORDERED: HYDROCODONE/ACETAMINOPHEN 10-325 MG TABLET PO ONE (21:00)
[2020-05-09] MEDS: ENOXAPARIN SODIUM INJ 40 MG/0.4 ML DISP.SYRIN SUBCUT SCH (21:17)
[2020-05-09] MEDS ORDERED: ALBUTEROL SULFATE HFA (90 MCG/PUFF) 8 GM MDI (1 MDI/ER DISP) IH PRN (22:03)
[2020-05-09] MEDS ORDERED: ONDANSETRON 4 MG TAB.RAPDIS PO PRN (22:03)
[2020-05-09] MEDS ORDERED: DICLOFENAC EPOLAMINE TD PRN (22:03)
[2020-05-09] MEDS: PIPERACILLIN SODIUM/TAZOBACTAM 3.375 GM in NORMAL SALINE 100 ML IV SCH (22:10)
[2020-05-09] MEDS: INSULIN LISPRO 100 UNIT/ML 3 ML VIAL SUBCUT SCH (22:11)
[2020-05-10] MEDS: INSULIN LISPRO 100 UNIT/ML 3 ML VIAL SUBCUT SCH ×9 (00:11→22:41)
[2020-05-10] MEDS: ATORVASTATIN CALCIUM 20 MG TABLET PO SCH ×2 (00:13→22:55)
[2020-05-10] MEDS ORDERED: DOXEPIN HCL 25 MG CAPSULE PO ONE (00:30)
[2020-05-10] MEDS: PIPERACILLIN SODIUM/TAZOBACTAM 3.375 GM in NORMAL SALINE 100 ML IV SCH ×4 (03:49→22:41)
[2020-05-10] MEDS ORDERED: ALBUTEROL SULFATE HFA (90 MCG/PUFF) 8 GM MDI IH PRN (06:54)
[2020-05-10] MEDS: OXYCODONE-ACETAMINOPHEN 5-325 MG TABLET PO PRN ×2 (08:31→21:26)
[2020-05-10] MEDS: METFORMIN HCL 500 MG TABLET PO SCH ×2 (09:23→18:00)
[2020-05-10] MEDS: SITAGLIPTIN PHOSPHATE 50 MG TABLET PO SCH (09:23)
[2020-05-10] MEDS: NORMAL SALINE 1000 ML 1,000 ML IV PRN ×2 (09:23→22:43)
[2020-05-10] MEDS: ZIPRASIDONE HCL 40 MG CAPSULE PO SCH ×2 (09:24→22:54)
[2020-05-10] MEDS: PANTOPRAZOLE SODIUM 40 MG TABLET.DR PO SCH (09:24)
[2020-05-10] MEDS: GABAPENTIN 300 MG CAPSULE PO SCH ×4 (09:24→22:39)
[2020-05-10] MEDS: FERROUS SULFATE 325 MG TABLET PO SCH (09:24)
[2020-05-10] MEDS: BUSPIRONE HCL 10 MG TABLET PO SCH ×3 (09:24→18:26)
[2020-05-10] MEDS: HYDROCHLOROTHIAZIDE 12.5 MG TABLET PO SCH (09:24)
[2020-05-10] MEDS: LISINOPRIL 10 MG TABLET PO SCH (09:25)
[2020-05-10] MEDS: ENOXAPARIN SODIUM INJ 40 MG/0.4 ML DISP.SYRIN SUBCUT SCH (09:26)
[2020-05-10] MEDS: PHENAZOPYRIDINE HCL 100 MG TABLET PO SCH ×3 (09:26→18:26)
[2020-05-10] MEDS: LAMOTRIGINE 100 MG TABLET PO SCH ×2 (09:26→18:26)
[2020-05-10] MEDS ORDERED: [UNRECOGNIZED DRUG - OTHER] PO SCH (10:00)
[2020-05-10] MEDS ORDERED: (PENDING PHARMACY ID) (Dapagliflozin Propanediol [Farxiga] 10 MG) PO SCH (10:00)
[2020-05-10] MEDS ORDERED: LUTEIN PO SCH (10:00)
[2020-05-10] MEDS ORDERED: FOLIC ACID PO SCH (10:00)
[2020-05-10] MEDS ORDERED: INSULIN DEGLUDEC 60 UNIT SUBCUT SCH (10:00)
[2020-05-10] MEDS ORDERED: MULTIVIT MIN PO SCH (10:00)
[2020-05-10] MEDS ORDERED: ALBUTEROL SULFATE HFA (90 MCG/PUFF) 200 PUFF/8.5 GM MDI IH PRN (10:11)
--- NOTE | 2020-05-10 13:36 | PDOC PROGRESS REPORT ---
Subjective Progress Note for:: 05/10/20 Subjective:: Patient continue to reported left flank pain. She claimed that she passed kidney stone about one week ago. There is nausea but no vomiting. No fever or chills. No chest pain or difficulty with breathing. Reason For Visit: ABDOMINAL PAIN, UTI Physical Exam Vital Signs: Temp Pulse Resp BP Pulse Ox 98.0 F 97 18 128/72 H 97 05/10/20 11:53 05/10/20 11:53 05/10/20 11:53 05/10/20 11:53 05/10/20 11:53 Intake & Output 05/09/20 05/10/20 05/11/20 06:59 06:59 06:59 Intake Total 2740 440 Output Total 1100 900 Balance 1640 -460 Weight 151 kg General appearance: PRESENT: mild distress - due to expressed pain, morbidly obese Eye exam: PRESENT: conjunctiva pink. ABSENT: scleral icterus Mouth exam: PRESENT: moist Respiratory exam: PRESENT: chest wall tenderness Cardiovascular exam: PRESENT: RRR, +S1, +S2. ABSENT: diastolic murmur, rubs, systolic murmur Vascular exam: ABSENT: pallor GI/Abdominal exam: PRESENT: normal bowel sounds, soft. ABSENT: distended, guarding, mass, organolmegaly, rebound, tenderness Extremities exam: ABSENT: pedal edema Neurological exam: PRESENT: alert, awake, oriented to person, oriented to place, oriented to time, oriented to situation, CN II-XII grossly intact. ABSENT: m otor sensory deficit Psychiatric exam: PRESENT: appropriate affect, normal mood. ABSENT: homicidal ideation, suicidal ideation Skin exam: PRESENT: dry, warm Results Laboratory Results: 05/09/20 15:48 05/09/20 15:48 05/09/20 05/09/20 05/09/20 15:48 15:48 18:20 WBC 14.6 H RBC 5.42 H Hgb 11.1 L Hct 35.7 L MCV 66 L MCH 20.4 L MCHC 31.1 L RDW 19.4 H Plt Count 337 Seg Neutrophils % 79.8 H Sodium 132.6 L Potassium 4.4 Chloride 92 L Carbon Dioxide 30 Anion Gap 11 BUN 13 Creatinine 0.61 Est GFR ( Amer) > 60 Glucose 177 H Calcium 9.8 Total Bilirubin 0.6 AST 32 Alkaline Phosphatase 161 H Total Protein 7.8 Albumin 4.5 Urine Color YELLOW Urine Appearance CLEAR Urine pH 7.0 Ur Specific [place] 1.027 Urine Protein NEGATIVE Urine Glucose (UA) >=500 H Urine Ketones TRACE H Urine Blood NEGATIVE Urine RBC (Auto) 1 Assessment & Plan - Diagnosis (1) Acute pyelonephritis Is this a current diagnosis for this admission?: Yes (2) Diabetes mellitus type 2 in obese Is this a current diagnosis for this admission?: Yes (3) HTN (hypertension) Qualifiers: Hypertension type: essential hypertension Qualified Code(s): I10 - Essential (primary) hypertension Is this a current diagnosis for this admission?: Yes (4) HLD (hyperlipidemia) Qualifiers: Hyperlipidemia type: unspecified Qualified Code(s): E78.5 - Hyperlipidemia, unspecified Is this a current diagnosis for this admission?: Yes (5) Chronic pain syndrome Is this a current diagnosis for this admission?: Yes (6) Chronic use of opiate drug for therapeutic purpose Is this a current diagnosis for this admission?: Yes (7) Rheumatoid arthritis Qualifiers: Laterality: unspecified laterality Is this a current diagnosis for this admission?: Yes (8) Asthma Qualifiers: Asthma persistence: intermittent Asthma complication type: unspecified Is this a current diagnosis for this admission?: Yes (9) Bipolar disorder Qualifiers: Active/Remission status: currently active Is this a current diagnosis for this admission?: Yes (10) Mixed anxiety and depressive disorder Is this a current diagnosis for this admission?: Yes (11) Morbid obesity with BMI of 50.0-59.9, adult Is this a current diagnosis for this admission?: Yes Plan: Continue caloric restriction and nutritional counseling. - Time Time Spent with patient: 25-34 minutes Level of Care: IMCU Medications reviewed and adjusted accordingly: Yes Anticipated discharge: Home with Homehealth Within: Other - Inpatient Certification Based on my medical assessment, after consideration of the patient's comorbid ities, presenting symptoms, or acuity I expect that the services needed warrant INPATIENT care.: Yes I certify that my determination is in accordance with my understanding of Medicare's requirements for reasonable and necessary INPATIENT services [42 CFR 412.3e].: Yes Medical Necessity: Significant Comorbidiites Make Outpatient Treatment Too Risky, Need Close Monitoring Due to Risk of Patient Decompensation, Need For IV Fluids, Need For Continuous Telemetry Monitoring, Need for IV Antibiotics, Risk of Complication if Not Cared For in Hospital, Risk of Diagnosis Which Will Require Inpatient Eval/Care/Monitoring Post Hospital Care: D/C Senior Support Analyst Documentation - Plan Summary Plan Summary: Continue IV antibiotic coverage and maintain on IV fluid support. Alice uri ne filtration for possible kidney stone passage.
[2020-05-10] MEDS: OXYCODONE HCL IR 5 MG TABLET PO PRN (16:16)
--- NOTE | 2020-05-10 17:43 | RADIOLOGY REPORT (SQ) ---
EXAM DESCRIPTION: CT ABD/PELVIS WITH IV ORAL IMAGES COMPLETED DATE/TIME: 05/10/2020 5:15 pm REASON FOR STUDY: Abdominal pain, Hx Kidney stone COMPARISON: 2011 TECHNIQUE: CT scan of the abdomen and pelvis performed using helical scanning technique with dynamic intravenous contrast injection. oral contrast. Images reviewed with lung, soft tissue, and bone win dows. Reconstructed coronal and sagittal MPR images reviewed. Delayed images for evaluation of the ur inary system also acquired. All images stored on PACS. All CT scanners at this facility use dose modulation, iterative reconstruction, and/or weight based d osing when appropriate to reduce radiation dose to as low as reasonably achievable (ALARA). [facility]: Dose Right [facility]: CareDose [facility]: Dose Right [facility]: Teradose 4D [facility]: DooBop CONTRAST TYPE AND DOSE: 100 cc Omnipaque 350- low osmolar. RENAL FUNCTION: BUN 13 creatinine 0.61 RADIATION DOSE: CT Rad equipment meets quality standard of care and radiation dose reduction techniq ues were employed. CTDIvol: 19.2 - 21.1 mGy. DLP: 2090 mGy-cm.. LIMITATIONS: None. FINDINGS: LOWER CHEST: No significant findings. No nodules or infiltrates. LIVER: The liver is mildly hypoattenuating. No does appear SPLEEN: Normal size. No focal lesions. PANCREAS: No masses. No significant calcifications. No adjacent inflammation or peripancreatic fluid collections. Pancreatic duct not dilated. GALLBLADDER: Surgically absent. ADRENAL GLANDS: No significant masses or asymmetry. RIGHT KIDNEY AND URETER: No solid masses. No significant calcifications. No hydronephrosis or hyd roureter. LEFT KIDNEY AND URETER: No solid masses. No significant calcifications. No hydronephrosis or hydr oureter. AORTA AND VESSELS: No aneurysm. No dissection. Renal arteries, SMA, celiac without stenosis. RETROPERITONEUM: No retroperitoneal adenopathy, hemorrhage or masses. BOWEL AND PERITONEAL CAVITY: No masses or inflammatory changes. No free fluid or peritoneal masses. APPENDIX: Normal. PELVIS: No mass. No free fluid. Normal bladder. ABDOMINAL WALL: No masses. No hernias. BONES: No significant or acute findings. OTHER: No other significant finding. IMPRESSION: Mild hepatic steatosis. No other significant finding in the abdomen or pelvis. TECHNICAL DOCUMENTATION: JOB ID: [id number] Quality ID # [id number]: Final reports with documentation of one or more dose reduction techniques (e.g., Au tomated exposure control, adjustment of the mA and/or kV according to patient size, use of iterative reconstruction technique) 2010 [employer]- All Rights Reserved Reading location - IP/workstation name: [email or web address]
[2020-05-10 19:32] LABS: C DIFFICILE GDH NEGATIVE (NEGATIVE)
[2020-05-10] MEDS: DOXEPIN HCL 25 MG CAPSULE PO SCH (22:37)
[2020-05-10] MEDS: HYDROXYZINE PAMOATE 50 MG CAPSULE PO PRN (22:40)
[2020-05-10] MEDS ORDERED: ZIPRASIDONE HCL 40 MG CAPSULE PO ONE (22:47)
[2020-05-10] MEDS ORDERED: LOPERAMIDE HCL 2 MG CAPSULE PO ONE (23:15)
[2020-05-11] MEDS: PIPERACILLIN SODIUM/TAZOBACTAM 3.375 GM in NORMAL SALINE 100 ML IV SCH ×4 (03:10→20:56)
[2020-05-11 06:04] LABS: ABSOLUTE BASOPHILS # (AUTO) 0.1 10^3/uL (0.0-0.2); ABSOLUTE EOSINOPHILS # (AUTO) 0.4 10^3/uL (0.0-0.6); ABSOLUTE LYMPHOCYTES (AUTO) 2.2 10^3/uL (0.5-4.7); ABSOLUTE MONOCYTES (AUTO) 0.9 10^3/uL (0.1-1.4); ABSOLUTE NEUT (AUTO) 6.5 10^3/uL (1.7-8.2); BASOPHILS % (AUTO) 0.6 % (0-2); HEMATOCRIT 29.7 % (36.0-47.0); HEMOGLOBIN 9.3 g/dL (12.0-15.5); LYMPHOCYTES % (AUTO) 22.1 % (13-45); MEAN CORPUSCULAR HEMOGLOBIN 20.4 pg (27.0-33.4); MEAN CORPUSCULAR HGB CONC 31.3 g/dL (32.0-36.0); MEAN CORPUSCULAR VOLUME 65 fl (80-97); PLATELET COUNT 266 10^3/uL (150-450); RED BLOOD COUNT 4.55 10^6/uL (3.72-5.28); RED CELL DISTRIBUTION WIDTH 20.1 % (11.5-14.0); SEGMENTED NEUTROPHILS % (AUTO) 64.3 % (42-78); TOTAL CELLS COUNTED % (AUTO) 100 %; WHITE BLOOD COUNT 10.2 10^3/uL (4.0-10.5)
[2020-05-11 06:26] LABS: ALBUMIN 3.5 g/dL (3.5-5.0); ALKALINE PHOSPHATASE 121 U/L (38-126); ANION GAP 8 (5-19); ASPARTATE AMINO TRANSFERASE 24 U/L (14-36); BILIRUBIN,TOTAL 0.5 mg/dL (0.2-1.3); BLOOD UREA NITROGEN 8 mg/dL (7-20); CALCIUM 8.8 mg/dL (8.4-10.2); CARBON DIOXIDE 27 mmol/L (22-30); CHLORIDE 98 mmol/L (98-107); CHOLESTEROL 106.17 mg/dL (0-200); GLUCOSE 162 mg/dL (75-110); POTASSIUM 3.5 mmol/L (3.6-5.0); TOTAL PROTEIN 6.3 g/dL (6.3-8.2); TRIGLYCERIDES 359 mg/dL (<150)
[2020-05-11 06:37] LABS: DIRECT LDL 32 mg/dL (<100)
[2020-05-11 06:43] LABS: VLDL CHOLESTEROL 71.8 mg/dL (10-31)
[2020-05-11] MEDS ORDERED: LOPERAMIDE HCL 2 MG CAPSULE PO ONE (07:00)
[2020-05-11] MEDS: INSULIN LISPRO 100 UNIT/ML 3 ML VIAL SUBCUT SCH ×8 (08:23→22:21)
[2020-05-11] MEDS: ZIPRASIDONE HCL 40 MG CAPSULE PO SCH ×2 (08:24→22:20)
[2020-05-11] MEDS: LISINOPRIL 10 MG TABLET PO SCH (10:19)
[2020-05-11] MEDS: GABAPENTIN 300 MG CAPSULE PO SCH ×4 (10:19→22:19)
[2020-05-11] MEDS: METFORMIN HCL 500 MG TABLET PO SCH ×2 (10:19→17:34)
[2020-05-11] MEDS: BUSPIRONE HCL 10 MG TABLET PO SCH ×3 (10:19→17:32)
[2020-05-11] MEDS: PANTOPRAZOLE SODIUM 40 MG TABLET.DR PO SCH (10:19)
[2020-05-11] MEDS: HYDROCHLOROTHIAZIDE 12.5 MG TABLET PO SCH (10:20)
[2020-05-11] MEDS: LAMOTRIGINE 100 MG TABLET PO SCH ×2 (10:20→17:32)
[2020-05-11] MEDS: FERROUS SULFATE 325 MG TABLET PO SCH (10:20)
[2020-05-11] MEDS: ENOXAPARIN SODIUM INJ 40 MG/0.4 ML DISP.SYRIN SUBCUT SCH (10:20)
[2020-05-11] MEDS: SITAGLIPTIN PHOSPHATE 50 MG TABLET PO SCH (10:20)
[2020-05-11] MEDS: PHENAZOPYRIDINE HCL 100 MG TABLET PO SCH ×3 (10:20→17:32)
[2020-05-11] MEDS: NORMAL SALINE 1000 ML 1,000 ML IV PRN (10:30)
--- NOTE | 2020-05-11 15:20 | PDOC PROGRESS REPORT ---
Subjective Progress Note for:: 05/11/20 Subjective:: Patient had episodes of diarrhea most of yesterday. Testing negative for C.difficile and occult blood. Symptom resolved with administration of Imodium. No fever or chills. No chest pain or difficulty with breathing. Reason For Visit: ABDOMINAL PAIN, UTI Physical Exam Vital Signs: Temp Pulse Resp BP Pulse Ox 98.1 F 91 16 105/45 L 95 05/11/20 03:22 05/11/20 03:22 05/11/20 03:22 05/11/20 03:22 05/11/20 03:22 Intake & Output 05/10/20 05/11/20 05/12/20 06:59 06:59 06:59 Intake Total 2740 3204 Output Total 1100 3600 Balance 1640 -396 Weight 151 kg 151.7 kg Physical Exam: General appearance: PRESENT: No acute distress, morbidly obese Eye exam: PRESENT: conjunctiva pink. ABSENT: pallor. scleral icterus Mouth exam: PRESENT: moist Respiratory exam: PRESENT: chest wall tenderness Cardiovascular exam: PRESENT: RRR, +S1, +S2. ABSENT: diastolic murmur, rubs, systolic murmur GI/Abdominal exam: PRESENT: normal bowel sounds, soft. ABSENT: distended, guarding, mass, organomegaly, rebound, tenderness Extremities exam: ABSENT: pedal edema Neurological exam: PRESENT: alert, awake, oriented to person, oriented to place, oriented to time, oriented to situation, CN II-XII grossly intact. ABSENT: motor sensory deficit Psychiatric exam: PRESENT: appropriate affect, normal mood. ABSENT: homicidal ideation, suicidal ideation Skin exam: PRESENT: dry, warm Results Laboratory Results: 05/11/20 05:05 05/11/20 05:05 05/10/20 05/11/20 05/11/20 18:30 05:05 05:05 WBC 10.2 RBC 4.55 Hgb 9.3 L Hct 29.7 L MCV 65 L MCH 20.4 L MCHC 31.3 L RDW 20.1 H Plt Count 266 Seg Neutrophils % 64.3 Sodium 133.3 L Potassium 3.5 L Chloride 98 Carbon Dioxide 27 Anion Gap 8 BUN 8 Creatinine 0.52 Est GFR ( Amer) > 60 Glucose 162 H Calcium 8.8 Total Bilirubin 0.5 AST 24 Alkaline Phosphatase 121 Total Protein 6.3 Albumin 3.5 Triglycerides 359 H Cholesterol 106.17 LDL Cholesterol Direct 32 VLDL Cholesterol 71.8 H HDL Cholesterol 31 L Stool Occult Blood NEGATIVE Impressions: Abdomen/Pelvis CT 05/10/20 00:00 IMPRESSION: Mild hepatic steatosis. No other significant finding in the abdomen or pelvis. Assessment & Plan - Diagnosis (1) Acute pyelonephritis Is this a current diagnosis for this admission?: Yes (2) Diabetes mellitus type 2 in obese Is this a current diagnosis for this admission?: Yes (3) HTN (hypertension) Qualifiers: Hypertension type: essential hypertension Qualified Code(s): I10 - Essential (primary) hypertension Is this a current diagnosis for this admission?: Yes (4) HLD (hyperlipidemia) Qualifiers: Hyperlipidemia type: unspecified Qualified Code(s): E78.5 - Hyperlipidemia, unspecified Is this a current diagnosis for this admission?: Yes (5) Chronic pain syndrome Is this a current diagnosis for this admission?: Yes (6) Chronic use of opiate drug for therapeutic purpose Is this a current diagnosis for this admission?: Yes (7) Rheumatoid arthritis Qualifiers: Laterality: unspecified laterality Is this a current diagnosis for this admission?: Yes (8) Asthma Qualifiers: Asthma persistence: intermittent Asthma complication type: unspecified Is this a current diagnosis for this admission?: Yes (9) Bipolar disorder Qualifiers: Active/Remission status: currently active Is this a current diagnosis for this admission?: Yes (10) Mixed anxiety and depressive disorder Is this a current diagnosis for this admission?: Yes (11) Morbid obesity with BMI of 50.0-59.9, adult Is this a current diagnosis for this admission?: Yes - Time Time Spent with patient: 25-34 minutes Level of Care: IMCU Medications reviewed and adjusted accordingly: Yes Anticipated discharge: Home Within: Other - Inpatient Certification Based on my medical assessment, after consideration of the patient's comorbidities, presenting symptoms, or acuity I expect that the services needed warrant INPATIENT care.: Yes I certify that my determination is in accordance with my understanding of Medicare's requirements for reasonable and necessary INPATIENT services [42 CFR 412.3e].: Yes Medical Necessity: Significant Comorbidiites Make Outpatient Treatment Too Risky, Need Close Monitoring Due to Risk of Patient Decompensation, Need For IV Fluids, Need For Continuous Telemetry Monitoring, Need for IV Antibiotics, Risk of Complication if Not Cared For in Hospital, Risk of Diagnosis Which Will Re quire Inpatient Eval/Care/Monitoring Post Hospital Care: D/C Medical Collections Specialist Documentation - Plan Summary Plan Summary: Continue current medication management. Follow up on pending labs.
[2020-05-11] MEDS: OXYCODONE HCL IR 5 MG TABLET PO PRN (20:04)
[2020-05-11] MEDS: DOXEPIN HCL 25 MG CAPSULE PO SCH (22:20)
[2020-05-11] MEDS: ATORVASTATIN CALCIUM 20 MG TABLET PO SCH (22:21)
[2020-05-12] MEDS: PIPERACILLIN SODIUM/TAZOBACTAM 3.375 GM in NORMAL SALINE 100 ML IV SCH ×4 (03:10→21:13)
[2020-05-12] MEDS: ZIPRASIDONE HCL 40 MG CAPSULE PO SCH ×2 (08:39→21:11)
[2020-05-12] MEDS: INSULIN LISPRO 100 UNIT/ML 3 ML VIAL SUBCUT SCH ×8 (08:39→21:14)
[2020-05-12] MEDS: GABAPENTIN 300 MG CAPSULE PO SCH ×4 (09:49→21:10)
[2020-05-12] MEDS: SITAGLIPTIN PHOSPHATE 50 MG TABLET PO SCH (09:49)
[2020-05-12] MEDS: ENOXAPARIN SODIUM INJ 40 MG/0.4 ML DISP.SYRIN SUBCUT SCH (09:49)
[2020-05-12] MEDS: FERROUS SULFATE 325 MG TABLET PO SCH (09:50)
[2020-05-12] MEDS: BUSPIRONE HCL 10 MG TABLET PO SCH ×3 (09:50→17:02)
[2020-05-12] MEDS: HYDROCHLOROTHIAZIDE 12.5 MG TABLET PO SCH (09:50)
[2020-05-12] MEDS: LISINOPRIL 10 MG TABLET PO SCH (09:50)
[2020-05-12] MEDS: PANTOPRAZOLE SODIUM 40 MG TABLET.DR PO SCH (09:50)
[2020-05-12] MEDS: PHENAZOPYRIDINE HCL 100 MG TABLET PO SCH ×3 (09:51→17:02)
[2020-05-12] MEDS: LAMOTRIGINE 100 MG TABLET PO SCH ×2 (09:51→17:02)
[2020-05-12] MEDS: METFORMIN HCL 500 MG TABLET PO SCH (09:51)
--- NOTE | 2020-05-12 10:53 | PDOC PROGRESS REPORT ---
Subjective Progress Note for:: 05/12/20 Subjective:: Patient is currently doing well except some decrease in her throat area patient other than that no chest pain no short of breath no back pain No fever no chills Reason For Visit: ABDOMINAL PAIN, UTI Physical Exam Vital Signs: Temp Pulse Resp BP Pulse Ox 97.4 F 95 18 112/56 L 98 05/12/20 08:20 05/12/20 08:20 05/12/20 08:20 05/12/20 08:20 05/12/20 08:20 Intake & Output 05/11/20 05/12/20 05/13/20 06:59 06:59 06:59 Intake Total 3204 4870 Output Total 3600 5000 Balance -396 -130 Weight 151.7 kg 155.4 kg General appearance: PRESENT: no acute distress, well-developed, well-nourished Head exam: PRESENT: atraumatic, normocephalic Eye exam: PRESENT: conjunctiva pink, EOMI, PERRLA. ABSENT: scleral icterus Ear exam: PRESENT: normal external ear exam Mouth exam: PRESENT: moist, tongue midline Additional comments: Mild oral thrush Neck exam: PRESENT: full ROM. ABSENT: carotid bruit, JVD, lymphadenopathy, thyromegaly Respiratory exam: PRESENT: clear to auscultation al Cardiovascular exam: PRESENT: RRR. ABSENT: diastolic murmur, rubs, systolic murmur Pulses: PRESENT: normal dorsalis pedis pul, +2 pedal pulses bilateral Vascular exam: PRESENT: normal capillary refill GI/Abdominal exam: PRESENT: normal bowel sounds, soft. ABSENT: distended, guarding, mass, organolmegaly, rebound, tenderness Rectal exam: PRESENT: deferred Musculoskeletal exam: PRESENT: ambulatory Neurological exam: PRESENT: alert, awake, oriented to person, oriented to place, oriented to time, oriented to situation, CN II-XII grossly intact. ABSENT: motor sensory deficit Psychiatric exam: PRESENT: appropriate affect, normal mood. ABSENT: homicidal ideation, suicidal ideation Skin exam: PRESENT: dry, intact, warm. ABSENT: cyanosis, rash Results Laboratory Results: 05/11/20 05:05 05/11/20 05:05 Impressions: Abdomen/Pelvis CT 05/10/20 00:00 IMPRESSION: Mild hepatic steatosis. No other significant finding in the abdomen or pelvis. Assessment & Plan - Diagnosis (1) Acute pyelonephritis Is this a current diagnosis for this admission?: Yes (2) Asthma Qualifiers: Asthma persistence: intermittent Asthma complication type: unspecified Is this a current diagnosis for this admission?: Yes (3) Bipolar disorder Qualifiers: Active/Remission status: currently active Is this a current diagnosis for this admission?: Yes (4) Chronic pain syndrome Is this a current diagnosis for this admission?: Yes (5) Diabetes mellitus type 2 in obese Is this a current diagnosis for this admission?: Yes (6) HLD (hyperlipidemia) Qualifiers: Hyperlipidemia type: unspecified Qualified Code(s): E78.5 - Hyperlipidemia, unspecified Is this a current diagnosis for this admission?: Yes (7) HTN (hypertension) Qualifiers: Hypertension type: essential hypertension Qualified Code(s): I10 - Essential (primary) hypertension Is this a current diagnosis for this admission?: Yes - Time Time Spent with patient: 15-24 minutes Level of Care: IMCU Medications reviewed and adjusted accordingly: Yes Anticipated discharge: Other Within: Other - Plan Summary Plan Summary: Continues to current medications Added to oral nystatin suspension
[2020-05-12] MEDS: NORMAL SALINE 1000 ML 1,000 ML IV PRN ×3 (11:51→22:00)
[2020-05-12] MEDS: DOXEPIN HCL 25 MG CAPSULE PO SCH (21:09)
[2020-05-12] MEDS: ATORVASTATIN CALCIUM 20 MG TABLET PO SCH (21:11)
[2020-05-13] MEDS: PIPERACILLIN SODIUM/TAZOBACTAM 3.375 GM in NORMAL SALINE 100 ML IV SCH ×4 (03:13→21:34)
[2020-05-13] MEDS: OXYCODONE-ACETAMINOPHEN 5-325 MG TABLET PO PRN ×2 (07:17→21:29)
[2020-05-13] MEDS: INSULIN LISPRO 100 UNIT/ML 3 ML VIAL SUBCUT SCH ×8 (07:52→21:33)
[2020-05-13] MEDS: ZIPRASIDONE HCL 40 MG CAPSULE PO SCH ×2 (07:52→21:30)
[2020-05-13] MEDS: NORMAL SALINE 1000 ML 1,000 ML IV PRN (07:54)
[2020-05-13] MEDS: SITAGLIPTIN PHOSPHATE 50 MG TABLET PO SCH (09:21)
[2020-05-13] MEDS: PANTOPRAZOLE SODIUM 40 MG TABLET.DR PO SCH (09:21)
[2020-05-13] MEDS: GABAPENTIN 300 MG CAPSULE PO SCH ×4 (09:21→21:29)
[2020-05-13] MEDS: LAMOTRIGINE 100 MG TABLET PO SCH ×2 (09:21→17:50)
[2020-05-13] MEDS: FERROUS SULFATE 325 MG TABLET PO SCH (09:21)
[2020-05-13] MEDS: HYDROCHLOROTHIAZIDE 12.5 MG TABLET PO SCH (09:21)
[2020-05-13] MEDS: LISINOPRIL 10 MG TABLET PO SCH (09:21)
[2020-05-13] MEDS: PHENAZOPYRIDINE HCL 100 MG TABLET PO SCH ×3 (09:21→17:50)
[2020-05-13] MEDS: BUSPIRONE HCL 10 MG TABLET PO SCH ×3 (09:25→17:50)
--- NOTE | 2020-05-13 10:20 | PDOC PROGRESS REPORT ---
Subjective Progress Note for:: 05/13/20 Subjective:: Patient is currently doing well except some decrease in her throat area patient other than that no chest pain no short of breath no back pain No fever no chills Reason For Visit: ABDOMINAL PAIN, UTI Physical Exam Vital Signs: Temp Pulse Resp BP Pulse Ox 97.9 F 91 16 142/79 H 98 05/13/20 07:56 05/13/20 07:56 05/13/20 07:56 05/13/20 07:56 05/13/20 07:56 Intake & Output 05/12/20 05/13/20 05/14/20 06:59 06:59 06:59 Intake Total 4870 3600 990 Output Total 5000 6100 Balance -130 -2500 990 Weight 155.4 kg 156.7 kg General appearance: PRESENT: no acute distress, well-developed, well-nourished Head exam: PRESENT: atraumatic, normocephalic Eye exam: PRESENT: conjunctiva pink, EOMI, PERRLA. ABSENT: scleral icterus Ear exam: PRESENT: normal external ear exam Mouth exam: PRESENT: moist, tongue midline Neck exam: PRESENT: full ROM. ABSENT: carotid bruit, JVD, lymphadenopathy, t hyromegaly Respiratory exam: PRESENT: clear to auscultation al Cardiovascular exam: PRESENT: RRR. ABSENT: diastolic murmur, rubs, systolic murmur Pulses: PRESENT: normal dorsalis pedis pul, +2 pedal pulses bilateral Vascular exam: PRESENT: normal capillary refill GI/Abdominal exam: PRESENT: normal bowel sounds, soft. ABSENT: distended, guarding, mass, organolmegaly, rebound, tenderness Rectal exam: PRESENT: deferred Neurological exam: PRESENT: alert, awake, oriented to person, oriented to place, oriented to time, oriented to situation, CN II-XII grossly intact. ABSENT: motor sensory deficit Psychiatric exam: PRESENT: appropriate affect, normal mood. ABSENT: homicidal ideation, suicidal ideation Skin exam: PRESENT: dry, intact, warm. ABSENT: cyanosis, rash Results Laboratory Results: 05/11/20 05:05 05/11/20 05:05 Impressions: Abdomen/Pelvis CT 05/10/20 00:00 IMPRESSION: Mild hepatic steatosis. No other significant finding in the abdomen or pelvis. Assessment & Plan - Diagnosis (1) Acute pyelonephritis Is this a current diagnosis for this admission?: Yes (2) Asthma Qualifiers: Asthma persistence: intermittent Asthma complication type: unspecified Is this a current diagnosis for this admission?: Yes (3) Bipolar disorder Qualifiers: Active/Remission status: currently active Is this a current diagnosis for this admission?: Yes (4) Chronic pain syndrome Is this a current diagnosis for this admission?: Yes (5) Diabetes mellitus type 2 in obese Is this a current diagnosis for this admission?: Yes (6) HLD (hyperlipidemia) Qualifiers: Hyperlipidemia type: unspecified Qualified Code(s): E78.5 - Hyperlipidemia, unspecified Is this a current diagnosis for this admission?: Yes (7) HTN (hypertension) Qualifiers: Hypertension type: essential hypertension Qualified Code(s): I10 - Essential (primary) hypertension Is this a current diagnosis for this admission?: Yes - Time Time Spent with patient: 15-24 minutes Level of Care: IMCU Medications reviewed and adjusted accordingly: Yes Anticipated discharge: Other Within: Other - Plan Summary Plan Summary: Continues to current medications
[2020-05-13] MEDS: ENOXAPARIN SODIUM INJ 40 MG/0.4 ML DISP.SYRIN SUBCUT SCH (11:42)
[2020-05-13] MEDS: NYSTATIN 500000 UNIT/5 ML UDCUP PO SCH ×2 (11:55→17:50)
[2020-05-13] MEDS: LACTOBACILLUS ACIDOPHILUS 250 MG TAB PO SCH ×2 (13:46→17:50)
[2020-05-13] MEDS: OXYCODONE HCL IR 5 MG TABLET PO PRN (16:06)
[2020-05-13] MEDS: ATORVASTATIN CALCIUM 20 MG TABLET PO SCH (21:30)
[2020-05-13] MEDS: DOXEPIN HCL 25 MG CAPSULE PO SCH (21:32)
[2020-05-14] MEDS: NYSTATIN 500000 UNIT/5 ML UDCUP PO SCH ×4 (00:20→18:28)
[2020-05-14] MEDS: NORMAL SALINE 1000 ML 1,000 ML IV PRN ×2 (00:21→08:45)
[2020-05-14] MEDS: PIPERACILLIN SODIUM/TAZOBACTAM 3.375 GM in NORMAL SALINE 100 ML IV SCH ×4 (03:15→22:20)
[2020-05-14 08:34] LABS: ABSOLUTE BASOPHILS # (AUTO) 0.1 10^3/uL (0.0-0.2); ABSOLUTE EOSINOPHILS # (AUTO) 0.4 10^3/uL (0.0-0.6); ABSOLUTE LYMPHOCYTES (AUTO) 2.5 10^3/uL (0.5-4.7); ABSOLUTE MONOCYTES (AUTO) 0.9 10^3/uL (0.1-1.4); ABSOLUTE NEUT (AUTO) 5.9 10^3/uL (1.7-8.2); BASOPHILS % (AUTO) 0.5 % (0-2); EOSINOPHILS % (AUTO) 4.5 % (0-6); HEMATOCRIT 30.1 % (36.0-47.0); HEMOGLOBIN 9.5 g/dL (12.0-15.5); LYMPHOCYTES % (AUTO) 25.8 % (13-45); MEAN CORPUSCULAR HEMOGLOBIN 20.9 pg (27.0-33.4); MEAN CORPUSCULAR HGB CONC 31.5 g/dL (32.0-36.0); MEAN CORPUSCULAR VOLUME 66 fl (80-97); MONOCYTES % (AUTO) 9.2 % (3-13); PLATELET COUNT 269 10^3/uL (150-450); RED BLOOD COUNT 4.54 10^6/uL (3.72-5.28); RED CELL DISTRIBUTION WIDTH 19.7 % (11.5-14.0); TOTAL CELLS COUNTED % (AUTO) 100 %; WHITE BLOOD COUNT 9.9 10^3/uL (4.0-10.5)
[2020-05-14] MEDS: ZIPRASIDONE HCL 40 MG CAPSULE PO SCH ×2 (08:45→22:20)
[2020-05-14] MEDS: INSULIN LISPRO 100 UNIT/ML 3 ML VIAL SUBCUT SCH ×8 (08:45→22:21)
[2020-05-14 09:32] LABS: ANION GAP 7 (5-19); BLOOD UREA NITROGEN 8 mg/dL (7-20); CALCIUM 8.7 mg/dL (8.4-10.2); CARBON DIOXIDE 26 mmol/L (22-30); CHLORIDE 103 mmol/L (98-107); GLUCOSE 179 mg/dL (75-110); POTASSIUM 4.2 mmol/L (3.6-5.0)
[2020-05-14] MEDS ORDERED: DULAGLUTIDE SUBCUT SCH (10:00)
[2020-05-14] MEDS: LISINOPRIL 10 MG TABLET PO SCH (10:01)
[2020-05-14] MEDS: SITAGLIPTIN PHOSPHATE 50 MG TABLET PO SCH (10:01)
[2020-05-14] MEDS: BUSPIRONE HCL 10 MG TABLET PO SCH ×3 (10:01→18:27)
[2020-05-14] MEDS: FERROUS SULFATE 325 MG TABLET PO SCH (10:01)
[2020-05-14] MEDS: PANTOPRAZOLE SODIUM 40 MG TABLET.DR PO SCH (10:01)
[2020-05-14] MEDS: HYDROXYZINE PAMOATE 50 MG CAPSULE PO PRN (10:01)
[2020-05-14] MEDS: PHENAZOPYRIDINE HCL 100 MG TABLET PO SCH ×3 (10:01→18:28)
[2020-05-14] MEDS: LAMOTRIGINE 100 MG TABLET PO SCH ×2 (10:01→18:28)
[2020-05-14] MEDS: GABAPENTIN 300 MG CAPSULE PO SCH ×4 (10:01→22:20)
[2020-05-14] MEDS: ENOXAPARIN SODIUM INJ 40 MG/0.4 ML DISP.SYRIN SUBCUT SCH (10:02)
[2020-05-14] MEDS: HYDROCHLOROTHIAZIDE 12.5 MG TABLET PO SCH (10:02)
[2020-05-14] MEDS: LACTOBACILLUS ACIDOPHILUS 250 MG TAB PO SCH ×2 (10:02→18:27)
[2020-05-14] MEDS: OXYCODONE-ACETAMINOPHEN 5-325 MG TABLET PO PRN ×2 (12:11→22:22)
[2020-05-14] MEDS: OXYCODONE HCL IR 5 MG TABLET PO PRN (12:12)
--- NOTE | 2020-05-14 16:35 | PDOC PROGRESS REPORT ---
Subjective Progress Note for:: 05/14/20 Subjective:: Patient denied any fever or chills. No chest pain or difficulty with breathing. No nausea, vomiting, or abdominal pain. Remain on IV Zosyn coverage. Her office urine culture did grew E. faecalis and Strept. agalactiae both > 100,000 col/mL and E. coli 10,000 -50, 000 col/mL all sensitive to Zosyn. Her blood culture is no growth x 4 days. Reason For Visit: ABDOMINAL PAIN, UTI Physical Exam Vital Signs: Temp Pulse Resp BP Pulse Ox 98.5 F 80 22 H 123/65 98 05/14/20 03:21 05/14/20 07:00 05/14/20 03:21 05/14/20 03:21 05/14/20 03:21 Intake & Output 05/13/20 05/14/20 05/15/20 06:59 06:59 06:59 Intake Total 3600 7281 Output Total 6100 74891 Balance -2500 -4219 Weight 156.7 kg 158.2 kg Physical Exam: General appearance: PRESENT: No acute distress, morbidly obese Eye exam: PRESENT: conjunctiva pink. ABSENT: pallor. scleral icterus Mouth exam: PRESENT: moist Respiratory exam: PRESENT: chest wall tenderness Cardiovascular exam: PRESENT: RRR, +S1, +S2. ABSENT: diastolic murmur, rubs, systolic murmur GI/Abdominal exam: PRESENT: normal bowel sounds, soft. ABSENT: distended, guarding, mass, organomegaly, rebound, tenderness Extremities exam: ABSENT: pedal edema Neurological exam: PRESENT: alert, awake, oriented to person, oriented to place, oriented to time, oriented to situation, CN II-XII grossly intact. ABSENT: motor sensory deficit Psychiatric exam: PRESENT: appropriate affect, normal mood. ABSENT: homicidal ideation, suicidal ideation Skin exam: PRESENT: dry, warm Results Laboratory Results: 05/11/20 05:05 05/11/20 05:05 Impressions: Abdomen/Pelvis CT 05/10/20 00:00 IMPRESSION: Mild hepatic steatosis. No other significant finding in the abdomen or pelvis. Assessment & Plan - Diagnosis (1) Acute pyelonephritis Is this a current diagnosis for this admission?: Yes (2) Diabetes mellitus type 2 in obese Is this a current diagnosis for this admission?: Yes (3) HTN (hypertension) Qualifiers: Hypertension type: essential hypertension Qualified Code(s): I10 - Essential (primary) hypertension Is this a current diagnosis for this admission?: Yes (4) HLD (hyperlipidemia) Qualifiers: Hyperlipidemia type: unspecified Qualified Code(s): E78.5 - Hyperlipidemia, unspecified Is this a current diagnosis for this admission?: Yes (5) Chronic pain syndrome Is this a current diagnosis for this admission?: Yes (6) Chronic use of opiate drug for therapeutic purpose Is this a current diagnosis for this admission?: Yes (7) Rheumatoid arthritis Qualifiers: Laterality: unspecified laterality Is this a current diagnosis for this admission?: Yes (8) Asthma Qualifiers: Asthma persistence: intermittent Asthma complication type: unspecified Is this a current diagnosis for this admission?: Yes (9) Bipolar disorder Qualifiers: Active/Remission status: currently active Is this a current diagnosis for this admission?: Yes (10) Mixed anxiety and depressive disorder Is this a current diagnosis for this admission?: Yes (11) Morbid obesity with BMI of 50.0-59.9, adult Is this a current diagnosis for this admission?: Yes - Time Time Spent with patient: 25-34 minutes Level of Care: IMCU Medications reviewed and adjusted accordingly: Yes Anticipated discharge: Home Within: Other - Inpatient Certification Based on my medical assessment, after consideration of the patient's comorbidities, presenting symptoms, or acuity I expect that the services needed warrant INPATIENT care.: Yes I certify that my determination is in accordance with my understanding of Medicare's requirements for reasonable and necessary INPATIENT services [42 CFR 412.3e].: Yes Medical Necessity: Significant Comorbidiites Make Outpatient Treatment Too Risky, Need Close Monitoring Due to Risk of Patient Decompensation, Need For IV Fluids, Need For Continuous Telemetry Monitoring, Need for IV Antibiotics, Risk of Complication if Not Cared For in Hospital, Risk of Diagnosis Which Will Require Inpatient Eval/Care/Monitoring Post Hospital Care: D/C Mail Messenger Documentation - Plan Summary Plan Summary: Continue current medication management. Follow up on blood culture findings. I discussed possible d/c home tomorrow with patient and she is in agreement.
[2020-05-14] MEDS: ATORVASTATIN CALCIUM 20 MG TABLET PO SCH (22:20)
[2020-05-14] MEDS: DOXEPIN HCL 25 MG CAPSULE PO SCH (22:20)
[2020-05-15] MEDS: NORMAL SALINE 1000 ML 1,000 ML IV PRN (00:30)
[2020-05-15] MEDS: NYSTATIN 500000 UNIT/5 ML UDCUP PO SCH ×2 (00:48→05:04)
[2020-05-15] MEDS: PIPERACILLIN SODIUM/TAZOBACTAM 3.375 GM in NORMAL SALINE 100 ML IV SCH ×2 (03:30→08:15)
[2020-05-15] MEDS: INSULIN LISPRO 100 UNIT/ML 3 ML VIAL SUBCUT SCH ×2 (08:13)
[2020-05-15] MEDS: ZIPRASIDONE HCL 40 MG CAPSULE PO SCH (08:13)
--- NOTE | 2020-05-15 08:15 | PDOC DISCHARGE SUMMARY ---
Impression - Admit/DC Date/PCP Admission Date/Primary Care Provider: 05/09/20 17:33 NICHELLE CASEY Discharge Date: 05/15/20 - Discharge Diagnosis (1) Acute pyelonephritis Is this a current diagnosis for this admission?: Yes (2) Diabetes mellitus type 2 in obese Is this a current diagnosis for this admission?: Yes (3) HTN (hypertension) Is this a current diagnosis for this admission?: Yes (4) HLD (hyperlipidemia) Is this a current diagnosis for this admission?: Yes (5) Chronic pain syndrome Is this a current diagnosis for this admission?: Yes (6) Chronic use of opiate drug for therapeutic purpose Is this a current diagnosis for this admission?: Yes (7) Rheumatoid arthritis Is this a current diagnosis for this admission?: Yes (8) Asthma Is this a current diagnosis for this admission?: Yes (9) Bipolar disorder Is this a current diagnosis for this admission?: Yes (10) Mixed anxiety and depressive disorder Is this a current diagnosis for this admission?: Yes (11) Morbid obesity with BMI of 50.0-59.9, adult Is this a current diagnosis for this admission?: Yes - Assessment Summary: She was admitted for abdominal pain with concern for acute pyelonephritis. Her blood culture was no growth after 5 days of incubation. Her urine culture from her urine specimen in the office grew E. faecalis and Strept. agalactiae both > 100,000 col/mL and E. coli 10,000 -50, 000 col/mL, all sensitive to IV Zosyn. She had five days of antibiotic infusion which is adequate treatment for her UTI. Her symptoms have since resolved ad her leukocyte count is in normal range. She will be discharged home today and follow up in the office as instructed upon discharge. - Additional Information Resuscitation Status: Full Code Discharge Diet: Cardiac, Diabetic Discharge Activity: Activity As Tolerated Referrals: NICHELLE CASEY MD [Primary Care Provider] - 05/24/20 10:00 am Home Medications: Albuterol Sulfate [Proair HFA] 2 puff IH Q4HP PRN 08/18/17 Ferrous Sulfate [Feosol] 325 mg PO DAILY 08/18/17 Lisinopril/Hydrochlorothiazide [Zestoretic 10-12.5 mg Tablet] 1 tab PO DAILY 08/18/17 Meloxicam [Mobic] 15 mg PO DAILY 08/18/17 Metformin HCl [Glucophage] 1,000 mg PO BID 08/18/17 Omeprazole 20 mg PO DAILY 08/18/17 Ondansetron [Zofran Odt 4 mg Tablet] 4 mg PO BIDP PRN 08/18/17 Ziprasidone HCl [Geodon] 80 mg PO QAM 08/18/17 Atorvastatin Calcium [Lipitor 20 mg Tablet] 20 mg PO QHS 05/09/20 Buspirone HCl 30 mg PO TID 05/09/20 Dapagliflozin Propanediol [Farxiga] 10 mg PO DAILY 05/09/20 Diclofenac Epolamine 1 each TD ASDIR PRN 05/09/20 Doxepin 100mg 200 mg PO QHS 05/09/20 Dulaglutide [Trulicity] 0.5 ml SUBCUT MO@1000 05/09/20 Fluconazole [Diflucan] 150 mg PO Q48HP PRN 05/09/20 Folic Acid/Multivit-Min/Lutein [Adult Multivitamin Gummies] 1 each PO DAILY 05/09/20 Gabapentin 600 mg PO QID 05/09/20 Hydroxyzine Pamoate [Vistaril 50 mg Capsule] 50 mg PO Q8HP PRN 05/09/20 Insulin Degludec [Tresiba Flextouch U-100] 60 units SUBCUT DAILY 05/09/20 Insulin Lispro [Humalog Insulin (Lispro) 100 unit/mL] 0 units SUBCUT .SLIDING SCALE 05/09/20 Insulin Lispro [Humalog Insulin (Lispro) 100 unit/mL] 5 units SUBCUT QID 05/09/20 Lamotrigine 200 mg PO BID 05/09/20 Oxycodone HCl/Acetaminophen [Percocet 10-325 mg Tablet] 1 each PO BIDP PRN 05/09/20 Phenazopyridine HCl [Pyridium 100 mg Tablet] 100 mg PO TID 05/09/20 Sitagliptin Phosphate [Januvia 50 mg Tablet] 50 mg PO DAILY 05/09/20 Turmeric Root Extract [Turmeric] 500 mg PO DAILY 05/09/20 Ziprasidone 80mg 160 mg PO QHS 05/09/20 History of Present Illiness History of Present Illness: BERTA MARIE is a 44 year old female known to my practice who presented to the office earlier today with several hours of abdominal pain that she described as sharp, localized to left side of her abdomen moving from the mid portion up and down and associated with nausea but no vomiting. Pain is worsen with movement. She denied fever or chills but breakout with sweats and felt warm. She reported associated urinary frequency, incontinence, muscle aches, back pain, weakness, fatigue and poor sleep due to her overall ill health She reported shortness of breathing with walking and history of kidney stone. Her initial evaluation in the office physical examination revealed LUQ, LLQ, and CVA tenderness to palpation and percussion respectively. Her laboratory assessment revealed leukocytosis with left shift, abnormal urinalysis with positive screen for UTI and she was advised hospitalization for further evaluation and management.. Hospital Course Hospital Course: She was admitted for abdominal pain with concern for acute pyelonephritis. Her blood culture was no growth after 5 days of incubation. Her urine culture from her urine specimen in the office grew E. faecalis and Strept. agalactiae both > 100,000 col/mL and E. coli 10,000 -50, 000 col/mL, all sensitive to IV Zosyn. She had five days of antibiotic infusion which is adequate treatment for her [place] I. Her symptoms have since resolved ad her leukocyte count is in normal range. She will be discharged home today and follow up in the office as instructed upon discharge. Physical Exam Vital Signs: Temp Pulse Resp BP Pulse Ox 98.4 F 82 19 121/67 95 05/15/20 03:26 05/15/20 06:39 05/15/20 03:26 05/15/20 03:26 05/15/20 03:26 Intake & Output 05/14/20 05/15/20 05/16/20 06:59 06:59 06:59 Intake Total 7281 5460 Output Total 56544 8600 Balance -4219 -3140 Weight 158.2 kg 155.8 kg General appearance: PRESENT: No acute distress, morbidly obese Eye exam: PRESENT: conjunctiva pink. ABSENT: pallor, scleral icterus Mouth exam: PRESENT: moist Respiratory exam: PRESENT: chest wall tenderness Cardiovascular exam: PRESENT: RRR, +S1, +S2. ABSENT: diastolic murmur, rubs, systolic murmur GI/Abdominal exam: PRESENT: normal bowel sounds, soft. ABSENT: distended, guarding, mass, organomegaly, rebound, tenderness Extremities exam: ABSENT: pedal edema Neurological exam: PRESENT: alert, awake, oriented to person, oriented to place, oriented to time, oriented to situation, CN II-XII grossly intact. ABSENT: motor sensory deficit Psychiatric exam: PRESENT: appropriate affect, normal mood. ABSENT: homicidal ideation, suicidal ideation Skin exam: PRESENT: dry, warm Results Laboratory Results: WBC 9.9 10^3/uL (4.0-10.5) 05/14/20 08:28 RBC 4.54 10^6/uL (3.72-5.28) 05/14/20 08:28 Hgb 9.5 g/dL (12.0-15.5) L 05/14/20 08:28 Hct 30.1 % (36.0-47.0) L 05/14/20 08:28 MCV 66 fl (80-97) L 05/14/20 08:28 MCH 20.9 pg (27.0-33.4) L 05/14/20 08:28 MCHC 31.5 g/dL (32.0-36.0) L 05/14/20 08:28 RDW 19.7 % (11.5-14.0) H 05/14/20 08:28 Plt Count 269 10^3/uL (150-450) 05/14/20 08:28 Lymph % (Auto) 25.8 % (13-45) 05/14/20 08:28 [place] % (Auto) 9.2 % (3-13) 05/14/20 08:28 Eos % (Auto) 4.5 % (0-6) 05/14/20 08:28 Baso % (Auto) 0.5 % (0-2) 05/14/20 08:28 Absolute Neuts (auto) 5.9 10^3/uL (1.7-8.2) 05/14/20 08:28 Absolute Lymphs (auto) 2.5 10^3/uL (0.5-4.7) 05/14/20 08:28 Absolute Monos (auto) 0.9 10^3/uL (0.1-1.4) 05/14/20 08:28 Absolute Eos (auto) 0.4 10^3/uL (0.0-0.6) 05/14/20 08:28 Absolute Basos (auto) 0.1 10^3/uL (0.0-0.2) 05/14/20 08:28 Seg Neutrophils % 60.0 % (42-78) 05/14/20 08:28 Sodium 136.0 mmol/L (137-145) L 05/14/20 08:28 Potassium 4.2 mmol/L (3.6-5.0) 05/14/20 08:28 Chloride 103 mmol/L (98-107) 05/14/20 08:28 Carbon Dioxide 26 mmol/L (22-30) 05/14/20 08:28 Anion Gap 7 (5-19) 05/14/20 08:28 BUN 8 mg/dL (7-20) 05/14/20 08:28 Creatinine 0.51 mg/dL (0.52-1.25) L 05/14/20 08:28 Est GFR ( Amer) > 60 (>60) 05/14/20 08:28 Est GFR (MDRD) Non-Af > 60 (>60) 05/14/20 08:28 Glucose 179 mg/dL (75-110) H 05/14/20 08:28 POC Glucose 211 mg/dL (70-110) H 05/15/20 07:52 Hemoglobin A1c % 8.4 % (4.7-6.0) H 05/11/20 05:05 Calcium 8.7 mg/dL (8.4-10.2) 05/14/20 08:28 Total Bilirubin 0.5 mg/dL (0.2-1.3) 05/11/20 05:05 Direct Bilirubin 0.0 mg/dL (0.0-0.4) 05/11/20 05:05 Neonat Total Bilirubin Not Reportable 05/11/20 05:05 Neonat Direct Bilirubin Not Reportable 05/11/20 05:05 Neonat Indirect Bili Not Reportable 05/11/20 05:05 AST 24 U/L (14-36) 05/11/20 05:05 ALT 16 U/L (<35) 05/11/20 05:05 Alkaline Phosphatase 121 U/L (38-126) 05/11/20 05:05 Total Protein 6.3 g/dL (6.3-8.2) 05/11/20 05:05 Albumin 3.5 g/dL (3.5-5.0) 05/11/20 05:05 Triglycerides 359 mg/dL (<150) H 05/11/20 05:05 Cholesterol 106.17 mg/dL (0-200) 05/11/20 05:05 LDL Cholesterol Direct 32 mg/dL (<100) 05/11/20 05:05 VLDL Cholesterol 71.8 mg/dL (10-31) H 05/11/20 05:05 HDL Cholesterol 31 mg/dL (>40) L 05/11/20 05:05 Urine Color YELLOW 05/09/20 18:20 Urine Appearance CLEAR 05/09/20 18:20 Urine pH 7.0 (5.0-9.0) 05/09/20 18:20 Ur Specific Frakes 1.027 05/09/20 18:20 Urine Protein NEGATIVE mg/dL (NEGATIVE) 05/09/20 18:20 Urine Glucose (UA) >=500 mg/dL (NEGATIVE) H 05/09/20 18:20 Urine Ketones TRACE mg/dL (NEGATIVE) H 05/09/20 18:20 Urine Blood NEGATIVE (NEGATIVE) 05/09/20 18:20 Urine Nitrite (Reflex) NEGATIVE (NEGATIVE) 05/09/20 18:20 Urine Bilirubin NEGATIVE (NEGATIVE) 05/09/20 18:20 Urine Urobilinogen NEGATIVE mg/dL (<2.0) 05/09/20 18:20 Leukocyte Esterase Rfl NEGATIVE (NEGATIVE) 05/09/20 18:20 Urine RBC (Auto) 1 /HPF 05/09/20 18:20 Urine WBC (Reflex) 1 /HPF 05/09/20 18:20 Squamous Epi Cells Auto 3 /HPF 05/09/20 18:20 Urine Ascorbic Acid NEGATIVE (NEGATIVE) 05/09/20 18:20 Stool Occult Blood NEGATIVE (NEGATIVE) 05/10/20 18:30 Stl C. Difficile GDH Ag NEGATIVE (NEGATIVE) 05/10/20 18:30 Stl C.difficile Tox A&B NEGATIVE (NEGATIVE) 05/10/20 18:30 Impressions: Abdomen/Pelvis CT 05/10/20 00:00 IMPRESSION: Mild hepatic steatosis. No other significant finding in the abdomen or pelvis. Plan Health Concerns: Morbid obesity with morbidities that increase her risk or recurrent infection. High risk of readmission. Plan of Treatment: Close follow up on her morbidities to optimized care outcome. Goals: Reduce readmission risk. Time Spent: Less than 30 Minutes Stroke Is this a Stroke Patient?: No Acute Heart Failure - Is this a Heart Failure Patient?: No
[2020-05-15] MEDS: OXYCODONE-ACETAMINOPHEN 5-325 MG TABLET PO PRN (08:17)
[2020-05-15 08:43] VITALS: BP 125/72
[2020-05-15] MEDS: GABAPENTIN 300 MG CAPSULE PO SCH (09:08)
[2020-05-15] MEDS: SITAGLIPTIN PHOSPHATE 50 MG TABLET PO SCH (09:08)
[2020-05-15] MEDS: PANTOPRAZOLE SODIUM 40 MG TABLET.DR PO SCH (09:09)
[2020-05-15] MEDS: BUSPIRONE HCL 10 MG TABLET PO SCH (09:09)
[2020-05-15] MEDS: HYDROCHLOROTHIAZIDE 12.5 MG TABLET PO SCH (09:09)
[2020-05-15] MEDS: LACTOBACILLUS ACIDOPHILUS 250 MG TAB PO SCH (09:09)
[2020-05-15] MEDS: LAMOTRIGINE 100 MG TABLET PO SCH (09:09)
[2020-05-15] MEDS: LISINOPRIL 10 MG TABLET PO SCH (09:09)
[2020-05-15] MEDS: PHENAZOPYRIDINE HCL 100 MG TABLET PO SCH (09:09)
[2020-05-15] MEDS: ENOXAPARIN SODIUM INJ 40 MG/0.4 ML DISP.SYRIN SUBCUT SCH (09:09)
[2020-05-15] MEDS: FERROUS SULFATE 325 MG TABLET PO SCH (09:09)
== END 2020-05-15 10:33 | disposition home or self-care (01) | DRG 690 ==
LOC: 3W 17:33
PROVIDERS: ADMIT Internal Medicine Geriatric Medicine; ATTEND Internal Medicine Geriatric Medicine
DX: N10 Acute pyelonephritis (principal); Z68.43 Body mass index [BMI] 50.0-59.9, adult; I10 Essential (primary) hypertension; E11.9 Type 2 diabetes mellitus without complications; K21.9 Gastro-esophageal reflux disease without esophagitis; J45.20 Mild intermittent asthma, uncomplicated; G89.4 Chronic pain syndrome; M06.9 Rheumatoid arthritis, unspecified; F41.8 Other specified anxiety disorders; F31.9 Bipolar disorder, unspecified; E66.01 Morbid (severe) obesity due to excess calories; Z79.84 Long term (current) use of oral hypoglycemic drugs; Z79.891 Long term (current) use of opiate analgesic; Z79.51 Long term (current) use of inhaled steroids; Z79.899 Other long term (current) drug therapy
CPT/HCPCS: 36415; 74177; 80048; 80053; 80061; 81001; 82272; 82962; 83036; 85025; 87040; 87324; 87449; J1650; J1815; J2543; J3490; J7030; J7050; S0119

== ENCOUNTER → 2020-07-12 | Outpatient (CLI) | payer MEDICAID ==
--- NOTE | 2020-07-12 15:28 | WOMENS IMAGING REPORT ---
EXAM DESCRIPTION: 3D SCREENING MAMMO BILAT IMAGES COMPLETED DATE/TIME: 07/12/2020 2:02 pm REASON FOR STUDY: Z12.31 ENCOUNTER FOR SCREENING MAMMOGRAM FOR MALIGNANT NEOPLASM OF BREAST Z12.31 ENCNTR SCREEN MAMMOGRAM FOR MALIGNANT NEOPLASM OF JAYE COMPARISON: 01/07/2019, 11/25/2017, 11/11/2016 EXAM PARAMETERS: Views: Standard craniocaudal and mediolateral oblique views of each breast recorded using digital acquisition and breast tomosynthesis. Read with the assistance of CAD. .[facility] - R2 Checkout Supervisor Version 9.2 LIMITATIONS: None. FINDINGS: No suspicious masses, suspicious calcifications or architectural distortion. No areas of c oncern. IMPRESSION: NEGATIVE MAMMOGRAM. BIRADS 1. BREAST DENSITY: b. There are scattered areas of fibroglandular density. BIRAD: ASSESSMENT: 1 NEGATIVE RECOMMENDATION: ROUTINE SCREENING COMMENT: The patient has been notified of the results by letter per MQSA requirements. Additional no tification policies are in place for contacting patient with suspicious or incomplete findings. Quality ID #[id number]: The [employer] recommends an annual screening mammogram for women aged 40 years or over. This facility utilizes a reminder system to ensure that all patients receive reminder letters, and/or direct phone calls for appointments. This includes reminders for routine scr eening mammograms, diagnostic mammograms, or other Breast Imaging Interventions when appropriate. Th is patient will be placed in the appropriate reminder system. TECHNICAL DOCUMENTATION: FINDING NUMBER: (1) ASSESSMENT: (1) JOB ID: [id number] 2010 [employer]- All Rights Reserved Reading location - IP/workstation name: [email or web address]
== END ==
LOC: WI 13:05
PROVIDERS: ATTEND Internal Medicine Geriatric Medicine
DX: Z12.31 Encounter for screening mammogram for malignant neoplasm of breast (principal)
CPT/HCPCS: 77063; 77067

== ENCOUNTER → 2020-12-19 | Outpatient (CLI) | payer MEDICAID ==
[2020-12-19 14:21] VITALS: BP 160/75
--- NOTE | 2020-12-19 14:21 | ER RDC ASSESSMENT REPORT ---
Intake - In the Last 14 days Have you traveled outside [place]?: No Have you been in close contact with someone CONFIRMED: Yes Worked in Healthcare?: No - Symptoms Subjective Fever([place] feverish): No Chills: No Muscule Aches: Yes Runny Nose: Yes Sore Throat: Yes Cough (New or worsening chronic cough): No Shortness of breath: Yes Nausea or Vomiting: Yes Headache: Yes Abdominal Pain: Yes Diarrhea(3 or more loose stools in last 24 hours): Yes - Do you have any of the following Chronic lung disease: Asthma or emphysema or COPD: Yes Cystic Fibrosis: No Diabetes: Yes High Blood Pressure: Yes Cardiovascular Disease: Yes Chronic Kidney Disease: No Chronic Liver Disease: No Chronic blood disorder like Sickle Cell Disease: No Weak immune system due to disease or medication: Yes Neurologic condition that limits movement: No Developmental delay - Moderate to Severe: No Recent (within past 2 weeks) or current : No Morbid Obesity (>100 pounds over ideal weight): Yes - Objective Temperature: 98.2 F Pulse Rate: 85 Respiratory Rate: 18 Blood Pressure: 160/75 O2 Sat by Pulse Oximetry: 96 Objective: Given above, testing performed: Flu strep Covid Disposition: Home; Selfcare General - General Stated Complaint: [place] symptoms Time Seen by Provider: 12/19/20 14:00 Mode of Arrival: Ambulatory Information source: Patient - HPI Notes: 5-year-old female presents to [facility] clinic for COVID-19 testing. Patient does report contact with [id number] who tested positive for COVID-19 approximately a week and 1/2 to 2 weeks ago. Onset of symptoms 12/06/2020. Patient is reporting muscle aches, sore throat, runny nose, nausea, headache, upset stomach, and diarrhea. Also reports some mild shortness of breath with exertion. Patient does have underlying asthma but typically does not require rescue inhaler that frequently. Patient states she is currently using rescue inhaler 1-2 times per day since being sick. Denies fever or chills, change in taste or smell, cough. - Related Data Allergies/Adverse Reactions: aripiprazole [From Abilify] Allergy (Severe, Verified 09/04/17 19:16) suicidal thoughts divalproex sodium [From Depakote] Allergy (Severe, Verified 09/04/17 19:16) n and v lithium [[place]] Allergy (Severe, Verified 09/04/17 19:16) n and v Sulfa (Sulfonamide Antibiotics) Allergy (Severe, Verified 09/04/17 19:16) itching hives gluten Allergy (Verified 09/04/17 19:16) antidepressants Allergy (Severe, Uncoded 08/18/17 16:23) manic tape Allergy (Severe, Uncoded 08/18/17 16:23) rash Past Medical History - General Information source: Patient - Social History Smoking Status: Never Smoker Family History: Reviewed & Not Pertinent - Past Medical History Cardiac Medical History: Reports: Hx Hypertension Denies: Hx Coronary Artery Disease, Hx Heart Attack Pulmonary Medical History: Reports: Hx Asthma - MILD Denies: Hx Bronchitis, Hx COPD, Hx Pneumonia, Hx Tuberculosis EENT Medical History: Reports: None Neurological Medical History: Reports: Hx Migraine. Denies: Hx Cerebrovascular Accident, Hx Seizures Endocrine Medical History: Reports: Hx Diabetes Mellitus Type 2 Renal/ Medical History: Reports: Hx Kidney Stones. Denies: Hx Peritoneal Dialysis Malignancy Medical History: Reports: None GI Medical History: Reports: Hx Gastroesophageal Reflux Disease Musculoskeletal Medical History: Reports Hx Arthritis Skin Medical History: Reports None Psychiatric Medical History: Reports: Hx Bipolar Disorder, Hx Depression - anxiety Traumatic Medical History: Reports: Hx Fractures - arm years ago Infectious Medical History: Reports: None Past Surgical History: Reports: Hx Cholecystectomy, Hx Hysterectomy, Hx Orthopedic Surgery - right foot, Hx Tubal Ligation. Denies: Hx Pacemaker Physical Exam - General General appearance: Appears well, Alert In distress: None Notes: PHYSICAL EXAMINATION: GENERAL: Well-appearing and in no acute distress. HEAD: Atraumatic, normocephalic. EYES: sclera anicteric, conjunctiva are normal. ENT: nares patent. Moist mucous membranes. NECK: Normal range of motion, supple without lymphadenopathy. LUNGS: No increased work of breathing. Lung sounds CTAB and equal. No wheezes rales or rhonchi. HEART: Regular rate and rhythm without murmurs. ABDOMEN: Soft, nontender, normal bowel sounds, no guarding. EXTREMITIES: Normal range of motion, no pitting edema. No cyanosis. NEUROLOGICAL: A&O x 3. Normal speech. PSYCH: Normal mood, normal affect. SKIN: Warm, Dry, normal turgor, no rashes or lesions noted Patient Education/Counseling Counseling/Education: Patient presents with symptoms associated with possible Covid 19 infection. Patient does not have emergency worrying symptoms such as difficulty breathing, shortness of breath, chest pain, pressure, confusion or cyanosis. Patient appears suitable for discharge as vital signs are stable and patient is nontoxic in appearance. Good return precautions have been discussed with patient, patient verbalized understanding and is agreeable with discharge plan of care at this time. Guidance for worsening S/SX: As a person under investigation for Covid 19, the [facility] Health and Human Services, division of public health advises you to adhere to the following guidance until your test results are reported to you. If your test result is positive, you will receive additional information from your provider and your local health department at that time. Remain at home until you are cleared by the health provider or public health authorities. Keep a log of visitors to your home, notify any visitors to your home of your isolation status. If you plan to move to a new address or leave the [facility], notify the local health department in your County. Call your doctor or seek care if you have an urgent medical need. Before seeking medical care, call ahead to get instructions from the provider before arriving at the medical office clinic or hospital. Notify them that you are being tested for the virus that causes Covid 19 so that arrangements can be made, as necessary, to prevent transmission to others in the healthcare setting. Next, notify the local health department in your county. If a medical emergency arises and you need to call 911, inform the first responders that you are being tested for the virus that causes Covid 19. Next, notify the local health department in your county. RDC Discharge - Discharge Clinical Impression: Exposure to COVID-19 virus, Encounter for screening laboratory testing for COVID-19 virus Upper respiratory infection Qualifiers: URI type: unspecified URI Qualified Code(s): J06.9 - Acute upper respiratory infection, unspecified Condition: Good Disposition: Home; Selfcare
[2020-12-19 14:58] LABS: A TYPE INFLUENZA AG NEGATIVE (NEGATIVE); B INFLUENZA AG NEGATIVE (NEGATIVE)
== END ==
LOC: RDC 13:17
PROVIDERS: ATTEND Registered Nurse
DX: Z20.822 Contact with and (suspected) exposure to COVID-19 (principal); J06.9 Acute upper respiratory infection, unspecified; M79.10 Myalgia, unspecified site; R09.89 Other specified symptoms and signs involving the circulatory and respiratory systems; J02.9 Acute pharyngitis, unspecified; R06.02 Shortness of breath; R51.9 Headache, unspecified; R10.9 Unspecified abdominal pain; R19.7 Diarrhea, unspecified; I10 Essential (primary) hypertension; E11.9 Type 2 diabetes mellitus without complications; E66.01 Morbid (severe) obesity due to excess calories; J45.909 Unspecified asthma, uncomplicated
CPT/HCPCS: 87070; 87880; 87635; 87804; C9803; 99202; 99211